=== PATIENT | male | born 1955 | race African-American/Black ===

== ENCOUNTER 2016-12-08 11:19 | Inpatient (IN) ==
[2016-12-08] MEDS ORDERED: Aspirin 81 MG TAB.CHEW PO ONE (11:25)
--- NOTE | 2016-12-08 12:14 | Emergency Department Note ---
Disposition Clinical Impression: Chest pain Disposition: Admitted As Inpatient Condition: Fair Chest Pain HPI - General Chief Complaint: ED Chest Pain Stated Complaint: chest pain Time Seen by Provider: 12/08/16 11:25 Source: patient, EMS Limitations: other Vital Signs Reviewed: Yes Nursing Notes Reviewed: Yes - History of Present Illness HPI Narrative: Mr. Vasquez, a 61yo male with hx chronic neuro deficits from remote CVA, [facility] trop[facility] (0.05). Chest pain onset this morning; awoke him from sleep. Located substernal. Described as a squeezing heaviness with radiation posteriorly to his back. Associated with nausea. Denies dyspnea, diaphoresis. Denies history of CAD. Denies unusual weakness, unusual numbness, unusual tingling. Abdominal pain located epigastric. Described as a constant dullness. He does have a history of GERD on omeprazole he states this pain is a lot different than his typical reflux. Admits: Chest pain, nausea, epigastric abdominal pain. Denies: Fever, chills, dyspnea, diaphoresis, unusual weakness, unusual numbness , unusual tingling. No vomiting, changes in bowel or bladder. Patient's his bedside. She is able to answer many of the questions regarding the history of present illness. Patient fully comprehends and will give answers however this takes much effort of him requires additional patience on the listener. PMH: HTN, HLD, DM insulin dependent, GERD. 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 Severity scale (1-10): 8 - Related Data Home Medications Medication Instructions Recorded Confirmed Albuterol Sulfate [Albuterol 2 puff IH QID PRN 12/08/16 12/08/16 Inhaler] Allopurinol [Zyloprim 300 MG] 300 mg PO DAILY 12/08/16 12/08/16 Aspirin 81 mg PO DAILY 12/08/16 12/08/16 Baclofen 20 mg PO QID 12/08/16 12/08/16 Budesonide/Formoterol 160/4.5 2 puff IH BIDR 12/08/16 12/08/16 [Symbicort 160/4.5] Carbamide Peroxide [Ear Wax Drops] 4 drop BOTH EARS BID 12/08/16 12/08/16 Carbidopa/Levodopa 25/100 [Sinemet 2.5 each PO TID 12/08/16 12/08/16 25/100] Escitalopram [Lexapro] 20 mg PO QAM 12/08/16 12/08/16 Eucerin Creme 1 appl TP DAILY 12/08/16 12/08/16 Gabapentin [Neurontin] 600 mg PO TID 12/08/16 12/08/16 Insulin ASPART [Novolog Flexpen] 0 unit SQ TIDAC 12/08/16 12/08/16 Insulin Glargine [Lantus] 23 unit SQ BID 12/08/16 12/08/16 Lactulose 20 gm PO DAILY 12/08/16 12/08/16 Lamotrigine [Lamictal] 100 mg PO HS 12/08/16 12/08/16 Loratadine [Claritin] 10 mg PO DAILY 12/08/16 12/08/16 Morphine Sulfate 15 mg PO TID PRN 12/08/16 12/08/16 Naproxen [Naprosyn] 500 mg PO BID 12/08/16 12/08/16 Omeprazole [PriLOSEC] 20 mg PO DAILY PRN 12/08/16 12/08/16 Petrolatum,White [Aloe [place]] 1 appl TP BID 12/08/16 12/08/16 Sennosides/Docusate Sodium [Senna 1 each PO BID 12/08/16 12/08/16 Plus] Simvastatin [Zocor] 20 mg PO HS 12/08/16 12/08/16 Allergies Allergy/AdvReac Type Severity Reaction Status Date / Time lisinopril Allergy See Verified 03/15/16 18:45 Comments trazodone Allergy See Verified 03/15/16 18:45 Comments tramadol AdvReac unknown Verified 12/08/16 15:03 All systems ED: reviewed and negative except as stated. (as per HPI) Chest Pain PMH - Past Medical History Medical history: Reports: arthritis, CVA, diabetes, hyperlipidemia, hypertension Psychiatric history: Reports: no psych history - Social History Smoking Status: Current every day smoker Alcohol use: Reports: none Drug use: Reports: none Physical Exam General: Patient is alert, oriented, and in no acute distress. HEENT: No facial asymmetry. Head is normocephalic and atraumatic. PERRLA. Trachea midline. Cardiovascular: Heart regular rate and rhythm without clicks, rubs, gallops, or murmurs. No JVD. PMI nondisplaced. Respiratory: Symmetric chest rise with good respiratory effort. Bilateral breath sounds are clear without wheezing, crackles, or rhonchi. Abdomen: Obese. Bowel sounds present normoactive x-4 quadrants. Abdomen is soft, nondistended, and nontender. No organomegaly noted. Neuro: Cranial nerves II through XII grossly intact. Psych: Patient's affect is appropriate for situation. - General Limitations: other General appearance: alert, in no apparent distress Course Course Narrative: Chest pain workup. Per [place] labs, patient's troponin was 0.052 at 09:36 this morning. Creatinine 1.32, labwork otherwise unremarkable. Vital Signs Temperature 98.1 F 12/08/16 11:21 Pulse Rate 81 12/08/16 11:21 Respiratory Rate 16 12/08/16 11:21 Blood Pressure 151/96 12/08/16 11:21 O2 Sat by Pulse Oximetry 95 12/08/16 11:21 Temperature 98.6 F 12/08/16 16:43 Pulse Rate 88 12/08/16 16:43 Respiratory Rate 16 12/08/16 16:43 Blood Pressure 154/88 12/08/16 16:43 O2 Sat by Pulse Oximetry 97 12/08/16 16:43 Oxygen Delivery Oxygen Delivery Nasal Cannula Chest Pain - Medical Records Medical records reviewed: Yes I reviewed the patient's medical records. - Lab Data Result diagrams: 12/08/16 12:28 12/08/16 12:28 Lab Results 12/08/16 12/08/16 12/08/16 Range/Units 11:46 12:28 12:28 WBC 15.1 H (4.3-11.1) K/mcL RBC 5.73 H (4.19-5.50) M/mcL Hgb 16.7 (12.9-16.9) g/dL Hct 49.4 (37.5-50.1) % MCV 86.2 (83.0-100.0) fL MCH 29.1 (28.0-33.3) pg MCHC 33.8 (31.6-35.5) g/dL RDW 13.1 (11.5-14.5) % Plt Count 191 (140-400) K/mcL MPV 10.6 (9.4-12.4) fL Immature Gran % 0.4 (0-4) % Seg Neutrophils % 83.2 % Lymphocytes % 9.9 % Monocytes % 5.8 % Eosinophils % 0.2 % Basophils % 0.5 % Neutrophils # 12.6 H (1.6-8.9) K/mcL Lymphocytes # 1.5 (0.6-4.6) K/mcL Monocytes # 0.9 (0.0-1.3) K/mcL Eosinophils # 0.0 (0.0-0.6) K/mcL Basophils # 0.1 (0.0-0.2) K/mcL Immature Plt Fraction 5.9 (1.1-6.1) % ESR (0-10) mm/hr PT 11.1 (9.4-12.1) Seconds INR 1.0 APTT 35.9 (26.0-36.0) Seconds Sodium (136-145) mEq/L Potassium (3.5-4.5) mEq/L Chloride (98-109) mEq/L Carbon Dioxide (19-29) mEq/L BUN (8-26) mg/dL Creatinine (0.72-1.25) mg/dL Est GFR ( Amer) (> 60) Est GFR (Non-Af Amer) (> 60) BUN/Creatinine Ratio (6-26) Glucose (70-99) mg/dL Calculated Osmolality (280-300) Calcium (8.6-10.8) mg/dL Creatine Kinase (30-200) Units/L Troponin I 0.01 (0-0.03) ng/mL C-Reactive Protein (Less than 5) mg/L 12/08/16 12/08/16 12/08/16 Range/Units 12:28 12:28 12:28 WBC (4.3-11.1) K/mcL RBC (4.19-5.50) M/mcL Hgb (12.9-16.9) g/dL Hct (37.5-50.1) % MCV (83.0-100.0) fL MCH (28.0-33.3) pg MCHC (31.6-35.5) g/dL RDW (11.5-14.5) % Plt Count (140-400) K/mcL MPV (9.4-12.4) fL Immature Gran % (0-4) % Seg Neutrophils % % Lymphocytes % % Monocytes % % Eosinophils % % Basophils % % Neutrophils # (1.6-8.9) K/mcL Lymphocytes # (0.6-4.6) K/mcL Monocytes # (0.0-1.3) K/mcL Eosinophils # (0.0-0.6) K/mcL Basophils # (0.0-0.2) K/mcL Immature Plt Fraction (1.1-6.1) % ESR 34 H (0-10) mm/hr PT (9.4-12.1) Seconds INR APTT (26.0-36.0) Seconds Sodium 135 L (136-145) mEq/L Potassium 4.4 (3.5-4.5) mEq/L Chloride 100 (98-109) mEq/L Carbon Dioxide 22 (19-29) mEq/L BUN 22 (8-26) mg/dL Creatinine 1.08 (0.72-1.25) mg/dL Est GFR ( Amer) > 60 (> 60) Est GFR (Non-Af Amer) > 60 (> 60) BUN/Creatinine Ratio 20 (6-26) Glucose 184 H (70-99) mg/dL Calculated Osmolality 288 (280-300) Calcium 9.5 (8.6-10.8) mg/dL Creatine Kinase 310 H (30-200) Units/L Troponin I (0-0.03) ng/mL C-Reactive Protein 6 H (Less than 5) mg/L - EKG Data EKG attestation: Yes I reviewed and interpreted this EKG. EKG results narrative: EKG dated 08 December 2016 at 11:28 shows sinus rhythm with a rate of 77. Normal intervals. Left axis. 1/[address] depression in aVF. Nonspecific ST T changes. Compared to previous from the [place] dated 08 December 2016 at 09:19 showing no acute ischemic changes in comparison; specifically the aVF 1/[address] depression is present. Both of these compared to previous dated 03/15/2016 showing sinus rhythm; no acute ischemic changes comparison; specifically the aVF 1/[address] depression is present. Heart Score - Score History: Moderately Suspicious EKG: Non Specific repolarisation Disturbance Age: 45-65 Risk Factors: Equal/Greater than 3 risk factor or history of atherosclerotic disease Troponin: Less than normal limit HEART Score Total: 5 Attestation Statement - Attestation Attestation: I examined this patient and my medical decision-making was reviewed with the CITY CONTROLLER/PA/Advanced Practice Nurse/Resident Physician. I agree with the documented findings, disposition and treatment plan as described except to the extent set forth below. Patient emergency department complaining of chest pain. [facility]. The patient has difficulty with speech from her prior stroke. Patient moves his hand along his lower chest when asked where it hurts. He also pointed to his back. On exam he is in no distress with clear lungs. Plan. Cardiac workup. He is describing pain into his back. His workup has been unremarkable and his EKG is unchanged. We will check a CTA chest abdomen pelvis to rule out dissection.
[2016-12-08 12:37] LABS: Basophils # 0.1 K/mcL (0.0-0.2); Basophils % 0.5 %; Eosinophils % 0.2 %; Hematocrit 49.4 % (37.5-50.1); Hemoglobin 16.7 g/dL (12.9-16.9); Immature Granulocytes % 0.4 % (0-4); Immature Platelets 5.9 % (1.1-6.1); Lymphocytes # 1.5 K/mcL (0.6-4.6); Lymphocytes % 9.9 %; Mean Corpuscular HGB Conc 33.8 g/dL (31.6-35.5); Mean Corpuscular Hemoglobin 29.1 pg (28.0-33.3); Mean Corpuscular Volume 86.2 fL (83.0-100.0); Mean Platelet Volume 10.6 fL (9.4-12.4); Monocytes # 0.9 K/mcL (0.0-1.3); Monocytes % 5.8 %; Neutrophils # 12.6 K/mcL (1.6-8.9); Platelet Count 191 K/mcL (140-400); Red Blood Count 5.73 M/mcL (4.19-5.50); Red Cell Distribution Width 13.1 % (11.5-14.5); Segmented Neutrophils % 83.2 %
[2016-12-08 12:43] LABS: Prothrombin Time 11.1 Seconds (9.4-12.1)
[2016-12-08 12:45] LABS: Activated Partial Thrombo Time 35.9 Seconds (26.0-36.0)
[2016-12-08 12:48] LABS: BUN/Creatinine Ratio 20 (6-26); Blood Urea Nitrogen 22 mg/dL (8-26); Calcium 9.5 mg/dL (8.6-10.8); Carbon Dioxide 22 mEq/L (19-29); Chloride 100 mEq/L (98-109); Glucose 184 mg/dL (70-99); Osmolality,Calculated 288 (280-300); Potassium 4.4 mEq/L (3.5-4.5); Sodium 135 mEq/L (136-145); eGFR For African Americans > 60 (> 60); eGFR For Non-African Americans > 60 (> 60)
[2016-12-08] MEDS ORDERED: *HR* Morphine 2 MG/ML SYRINGE IV ONE (13:24)
[2016-12-08] MEDS: Nitroglycerin 25 MG/250 ML INFUS..BTL IVC SCH (14:39)
[2016-12-08] MEDS ORDERED: Ketorolac 30 MG/ML VIAL IVP PRN (15:37)
[2016-12-08] MEDS ORDERED: Ketorolac 30 MG/ML VIAL IVP ONE (15:38)
[2016-12-08] MEDS ORDERED: *HR* HYDROmorphone 2 MG/ML SYRINGE IVP PRN (15:40)
[2016-12-08] MEDS ORDERED: D5% in Water 1,000 ML IV PRN (15:41)
[2016-12-08] MEDS ORDERED: Dextrose Gel 15 GM PO PRN ×2 (15:41)
[2016-12-08] MEDS ORDERED: *HR* Dextrose 50 % in Water (Syg) 50 ML SYRINGE IVP PRN (15:41)
[2016-12-08] MEDS ORDERED: Ondansetron 4 MG/2 ML VIAL IVP PRN (15:45)
--- NOTE | 2016-12-08 15:49 | Internal Med History&Physical ---
Date of Encounter: 12/08/16 Time of Encounter: 14:45 Internal Medicine - H&P: HPI Chief complaint: Chest pain Admitted From: Emergency Dept Plans for Post Hospital Care: Home History of present illness: Mr. Vasquez is a 61 year old male Mr. Vasquez, with medical history significant for GERD, DM-2 on insulin, CVA with residual deficits and expressive dysphasia ( with prior cardiac history) was referred from the [facility] where he had present after awakening to severe chest pain at 4;00am this morning. He was brought in by his girl-friend who help with history. He is a very poor historian due to severe expressive dysphasia. Chest pain is mid-sternal and right-sided, severe, persistent, not relieved thus far any factor. He reports some nausea but no vomiting, no diaphoresis, or SOB. The chest pain appears to have a pleuritic component, as he appears to say the pain is worse with deep breathing and movement of the torso. No rash. No history of shingles. No chest trauma, no cough or fever. No history of pericarditis. [facility], trop[facility] reported elevated at 0.05, WITHOUT ACUTE ekg CHANGES. tROPONIN IS HOWEVER 0.01 at [facility]. There are no acute changes on EKG at [facility]. A 10-point ROS was performed. He is DNR-CCA as per discussion. He nominates is daughter, James Arnold as his NOK/ POA ([phone]). Medical history: Reports: arthritis, CVA, diabetes, hyperlipidemia, hypertension , PLS, GERD, Psychiatric history: Reports: no psych history Smoking Status: Current every day smoker, <1 PPD Alcohol use: Reports: none Drug use: Reports: none Family history: he is a very poor historian due to severe expressive dysphasia ROS: A 10-point ROS was performed, positives and relevant negatives are detailed, system-symptom not mentioned is assumed negative unless otherwise stated. Vital Signs Temperature 98.1 F 12/08/16 11:21 Pulse Rate 81 12/08/16 11:21 Respiratory Rate 16 12/08/16 11:21 Blood Pressure 151/96 12/08/16 11:21 O2 Sat by Pulse Oximetry 95 12/08/16 11:21 Temperature 98.1 F 12/08/16 11:21 Pulse Rate 82 12/08/16 11:29 Respiratory Rate 16 12/08/16 11:29 Blood Pressure 163/89 12/08/16 11:29 O2 Sat by Pulse Oximetry 96 12/08/16 11:29 O/E Acutely distressed patient, from pain, marked expressive dysphasia HEENT: not pale, anicteric, afebrile, acyanotic., trachea is central, no JVD, no cervical or jugular lymphadenopathy. Chest: CTAB, chest wall is tender in the mid-sternum, lower right chest wall anteriorly and the epigastrium. Heart: RRR, HS1/2, no murmur Abdomen: soft, vague epigastric tenderness, not distended. BS+, normoactive MILITARY PAY CLERK: AAO X 3. Marked expressive dysphasia Skin: No active skin lesion Extremities: No pedal edema, normal pedal pulses, no calf tenderness. Lab Results 12/08/16 12/08/16 12/08/16 Range/Units 11:46 12:28 12:28 WBC 15.1 H (4.3-11.1) K/mcL RBC 5.73 H (4.19-5.50) M/mcL Hgb 16.7 (12.9-16.9) g/dL Hct 49.4 (37.5-50.1) % MCV 86.2 (83.0-100.0) fL MCH 29.1 (28.0-33.3) pg MCHC 33.8 (31.6-35.5) g/dL RDW 13.1 (11.5-14.5) % Plt Count 191 (140-400) K/mcL MPV 10.6 (9.4-12.4) fL Immature Gran % 0.4 (0-4) % Seg Neutrophils % 83.2 % Lymphocytes % 9.9 % Monocytes % 5.8 % Eosinophils % 0.2 % Basophils % 0.5 % Neutrophils # 12.6 H (1.6-8.9) K/mcL Lymphocytes # 1.5 (0.6-4.6) K/mcL Monocytes # 0.9 (0.0-1.3) K/mcL Eosinophils # 0.0 (0.0-0.6) K/mcL Basophils # 0.1 (0.0-0.2) K/mcL Immature Plt Fraction 5.9 (1.1-6.1) % PT 11.1 (9.4-12.1) Seconds INR 1.0 APTT 35.9 (26.0-36.0) Seconds Sodium (136-145) mEq/L Potassium (3.5-4.5) mEq/L Chloride (98-109) mEq/L Carbon Dioxide (19-29) mEq/L BUN (8-26) mg/dL Creatinine (0.72-1.25) mg/dL Est GFR ( Amer) (> 60) Est GFR (Non-Af Amer) (> 60) BUN/Creatinine Ratio (6-26) Glucose (70-99) mg/dL Calculated Osmolality (280-300) Calcium (8.6-10.8) mg/dL Troponin I 0.01 (0-0.03) ng/mL 12/08/16 Range/Units 12:28 WBC (4.3-11.1) K/mcL RBC (4.19-5.50) M/mcL Hgb (12.9-16.9) g/dL Hct (37.5-50.1) % MCV (83.0-100.0) fL MCH (28.0-33.3) pg MCHC (31.6-35.5) g/dL RDW (11.5-14.5) % Plt Count (140-400) K/mcL MPV (9.4-12.4) fL Immature Gran % (0-4) % Seg Neutrophils % % Lymphocytes % % Monocytes % % Eosinophils % % Basophils % % Neutrophils # (1.6-8.9) K/mcL Lymphocytes # (0.6-4.6) K/mcL Monocytes # (0.0-1.3) K/mcL Eosinophils # (0.0-0.6) K/mcL Basophils # (0.0-0.2) K/mcL Immature Plt Fraction (1.1-6.1) % PT (9.4-12.1) Seconds INR APTT (26.0-36.0) Seconds Sodium 135 L (136-145) mEq/L Potassium 4.4 (3.5-4.5) mEq/L Chloride 100 (98-109) mEq/L Carbon Dioxide 22 (19-29) mEq/L BUN 22 (8-26) mg/dL Creatinine 1.08 (0.72-1.25) mg/dL Est GFR ( Amer) > 60 (> 60) Est GFR (Non-Af Amer) > 60 (> 60) BUN/Creatinine Ratio 20 (6-26) Glucose 184 H (70-99) mg/dL Calculated Osmolality 288 (280-300) Calcium 9.5 (8.6-10.8) mg/dL Troponin I (0-0.03) ng/mL CXR: no acute cardiopulmonary anomalies CTA chest and CT abdomen: no acute cardiopulmonary anomalies, no pulmonary embolism, no dissection. EKG: NSR @77, normal axis, normal intervals, marginal ST in aVF (0.5mm). otherwise non-specific ST-T segment anomalies IMP Atypical chest pain, more consistent with musculoskeletal pain, than cardiac chest pain despite presence of risk factor, pain is partly reproducible Leucocytosis: Likely reactive or inflammatory Chronic morbidities DM2 HTN HLD PLS Remote CVA with residual expressive dysphasia Arthritis GERD. Ambulatory dysfunction, uses a walker the past 4 years. Tobacco abuse PLAN Admit to telemetry Cycle troponin, serial EKG 2D ECHO to assess LVEF, wma and to look for pericardial effusion that may suggest pericarditis CPK, CRP, ESR, trend WBC IV Toradol and Dialudid for pain Stress test in the AM if troponin remain normal Basal and correctional insulin QAC/HS Continue essential medications of chronic morbidities GI/DVT prophylaxis. Nicotine replacement offered. Past Med Surg Social Fam HX - Past Medical History Medical history: arthritis, CVA, diabetes, hyperlipidemia, hypertension Psychiatric history: no psych history - Social History Smoking Status: Current every day smoker Smokeless Tobacco Status: No Alcohol use: none Drug use: none Internal Medicine - H&P: Meds Albuterol Sulfate [Albuterol Inhaler] 2 puff IH QID PRN 12/08/16 [History] Allopurinol [Zyloprim 300 MG] 300 mg PO DAILY 12/08/16 [History] Aspirin 81 mg PO DAILY 12/08/16 [History] Baclofen 20 mg PO QID 12/08/16 [History] Budesonide/Formoterol 160/4.5 [Symbicort 160/4.5] 2 puff IH BIDR 12/08/16 [ History] Carbamide Peroxide [Ear Wax Drops] 4 drop BOTH EARS BID 12/08/16 [History] Carbidopa/Levodopa 25/100 [Sinemet 25/100] 2.5 each PO TID 12/08/16 [History] Escitalopram [Lexapro] 20 mg PO QAM 12/08/16 [History] Eucerin Creme 1 appl TP DAILY 12/08/16 [History] Gabapentin [Neurontin] 600 mg PO TID 12/08/16 [History] Insulin ASPART [Novolog Flexpen] 0 unit SQ TIDAC 12/08/16 [History] Insulin Glargine [Lantus] 23 unit SQ BID 12/08/16 [History] Lactulose 20 gm PO DAILY 12/08/16 [History] Lamotrigine [Lamictal] 100 mg PO HS 12/08/16 [History] Loratadine [Claritin] 10 mg PO DAILY 12/08/16 [History] Morphine Sulfate 15 mg PO TID PRN 12/08/16 [History] Naproxen [Naprosyn] 500 mg PO BID 12/08/16 [History] Omeprazole [PriLOSEC] 20 mg PO DAILY PRN 12/08/16 [History] Petrolatum,White [Aloe [place]] 1 appl TP BID 12/08/16 [History] Sennosides/Docusate Sodium [Senna Plus] 1 each PO BID 12/08/16 [History] Simvastatin [Zocor] 20 mg PO HS 12/08/16 [History] Allergies lisinopril Allergy (Verified 03/15/16 18:45) See Comments trazodone Allergy (Verified 03/15/16 18:45) See Comments tramadol Adverse Reaction (Verified 12/08/16 15:03) unknown [facility] All Systems PM: A 10-system review of systems was performed and is negative for pertinent findings except as documented above in the HPI. - Constitutional Vitals: Temp Pulse Resp BP Pulse Ox 98.1 F 86 18 162/92 100 12/08/16 11:21 12/08/16 14:40 12/08/16 15:22 12/08/16 15:22 12/08/16 14:40 Internal Med - H&P Results - Labs CBC & Chem 7: 12/08/16 12:28 12/08/16 12:28
[2016-12-08 16:28] LABS: C-Reactive Protein 6 mg/L (Less than 5); Creatine Kinase 310 Units/L (30-200)
[2016-12-08] MEDS: Insulin LISPRO 300 UNITS/3 ML VIAL SQ SCH (17:28)
[2016-12-08] MEDS: Baclofen 10 MG TABLET PO SCH ×2 (17:39→22:26)
[2016-12-08] MEDS: Budesonide/Formoterol 160/4.5 MDI IH SCH ×2 (21:22→21:23)
[2016-12-08] MEDS ORDERED: Perflutren Lipid Microsphere 1.3 ML in 0.9 % Sodium Chloride 8.7 ML IVP ONE (21:34)
[2016-12-08] MEDS: Gabapentin 300 MG CAPSULE PO SCH (22:27)
[2016-12-08] MEDS: lamoTRIgine 100 MG TABLET PO SCH (22:27)
[2016-12-08] MEDS: Sennosides/Docusate Sodium TABLET PO SCH (22:27)
[2016-12-08] MEDS: Carbidopa/Levodopa 25/100 TABLET PO SCH (22:27)
[2016-12-08] MEDS: Lactulose Oral Soln 20 GM/30 ML UDC PO SCH (22:28)
[2016-12-09] MEDS: Insulin DETEMIR 100 UNIT/ML X5UNITS SQ SCH ×3 (00:03→21:35)
[2016-12-09] MEDS: Insulin LISPRO 300 UNITS/3 ML VIAL SQ SCH ×5 (00:04→21:15)
[2016-12-09 04:30] LABS: Basophils # 0.1 K/mcL (0.0-0.2); Basophils % 0.6 %; Eosinophils # 0.1 K/mcL (0.0-0.6); Eosinophils % 0.9 %; Hematocrit 48.9 % (37.5-50.1); Hemoglobin 15.7 g/dL (12.9-16.9); Immature Granulocytes % 0.3 % (0-4); Lymphocytes # 3.1 K/mcL (0.6-4.6); Lymphocytes % 24.9 %; Mean Corpuscular HGB Conc 32.1 g/dL (31.6-35.5); Mean Corpuscular Hemoglobin 28.4 pg (28.0-33.3); Mean Corpuscular Volume 88.6 fL (83.0-100.0); Mean Platelet Volume 10.8 fL (9.4-12.4); Monocytes # 1.2 K/mcL (0.0-1.3); Monocytes % 9.4 %; Neutrophils # 7.9 K/mcL (1.6-8.9); Platelet Count 193 K/mcL (140-400); Red Blood Count 5.52 M/mcL (4.19-5.50); Red Cell Distribution Width 13.3 % (11.5-14.5); Segmented Neutrophils % 63.9 %
[2016-12-09] MEDS ORDERED: Regadenoson 0.4 MG/5 ML SYRINGE IVP ONE (06:13)
[2016-12-09] MEDS: *HR* Enoxaparin 40 MG/0.4 ML SYRINGE SQ SCH (06:53)
[2016-12-09] MEDS: Baclofen 10 MG TABLET PO SCH ×4 (09:53→20:45)
[2016-12-09] MEDS: Aspirin 81 MG TAB.CHEW PO SCH (09:54)
[2016-12-09] MEDS: Carbidopa/Levodopa 25/100 TABLET PO SCH ×3 (09:54→20:52)
[2016-12-09] MEDS: Gabapentin 300 MG CAPSULE PO SCH ×3 (09:55→20:45)
--- NOTE | 2016-12-09 09:56 | ECHO - Doppler Report ---
Echo with Imaging Enhancement Agent Name: Demario Vasquez Date of Study: 12/08/2016 Date: 1955 Ht: 71.0 in Medical Record#: [id number] Age: 61 Wt: 228.0 lb Gender: Male BSA: 2.23 Order #: [id number] Location: [facility] Room #: 2A37 Reading Physician: Breonna Preciado DO Used Equipment Sales Representative: DORYS BurrisT Ordering Physician: Xiang Mondragon MD Primary Physician: [facility] Indications: Chest pain Impressions: LVEF 60%. Normal left ventricular size and systolic function. There is evidence of mild diastolic dysfunction of the left ventricle. Normal right ventricular size and function. No significant valvular dysfunction. No pulmonary hypertension. Left Ventricular Wall Motion: Rest Echo Findings The mid anterior septal and basal anterior septal sigala were not visualized. All other wall segments showed normal motion. Findings: Study Quality * Technically sub-optimal due to clinical status. ECG Findings * Normal sinus rhythm. Aortic Valve * No aortic regurgitation. * Aortic valve not well visualized. * No aortic stenosis. Mitral Valve * No mitral regurgitation. * Mitral valve not well visualized. * No mitral stenosis. Tricuspid Valve * Tricuspid valve not well visualized. * No tricuspid regurgitation. Pulmonic Valve * Pulmonic valve is not well visualized. * No pulmonic stenosis. * No pulmonic regurgitation. Pulmonary Artery * Pulmonary artery not well visualized. Right Ventricle * Normal right ventricular structure and function. Left Ventricle * Normal LV chamber size, wall thickness and function. * Mild left ventricular diastolic dysfunction. * Definity echo contrast was used. * LVEF 60%. Left Atrium * Normal left atrial size. Right Atrium * Normal right atrial size. Interatrial Septum * Interatrial septum not well evaluated. IVC * The IVC is not well evaluated. Pericardium * There is no pericardial effusion present. Aorta * Normally sized aortic root. History Hypertension Diabetes Hypercholesteremia 04-21-2015 a Previous Echo was performed. Contrast: Definity 1.3 ml in 8.7 ml of saline 2 ml. Measurements: BP: 154/ 88 2D Normal Values RVIDd: 3.30 cm <2.7 cm IVSd: .90 cm 0.6 - 1.0 cm LVIDd: 4.60 cm 3.7 - 5.6 cm LVPWd: .90 cm 0.6 - 1.1 cm AO: 3.10 cm < 4.0 cm LA: 3.30 cm 2.0 - 4.0cm %FS: 12.70 cm >25 % LA volume: 34 Mitral Valve Peak E:.43 m/sec Peak A:.64 m/sec E/A Ratio:0.7 Tricuspid Valve TV Regurg Peak Grad: 5.00mmHg TV Regurg Peak [place]: 1.14m/sec Updated by Breonna Preciado on 12/09/2016 9:49:24 AM electronically signed on 12/09/2016 9:52:28 AM with status of Final Wall Motion [place]: 1=Normal, 2=Hypokinesis, 3=Akinesis, 4=Dyskinesis, 5=Aneurysmal, 6=Hyperkinetic, X=Not Visualized (Blank)=Missing
[2016-12-09] MEDS: Loratadine 10 MG TABLET PO SCH (09:57)
[2016-12-09] MEDS: Sennosides/Docusate Sodium TABLET PO SCH ×2 (09:57→20:48)
[2016-12-09] MEDS: Eucerin Cream 57 GM TUBE TP SCH (09:59)
[2016-12-09] MEDS: Nitroglycerin 25 MG/250 ML INFUS..BTL IVC SCH (10:00)
[2016-12-09] MEDS: Budesonide/Formoterol 160/4.5 MDI IH SCH ×2 (10:36→20:12)
[2016-12-09] MEDS: *HR* Morphine Sulfate SR (12 HR) 15 MG TABLET.ER PO SCH ×2 (12:04→20:48)
--- NOTE | 2016-12-09 12:08 | Nuclear Medicine Stress Report ---
Regadenoson Nuclear Stress Name: Demario Vasquez Date of Study: 12/09/2016 Date: 1955 Ht: 70.0 in Medical Record#: [id number] Age: 61 Wt: 237.0 lb Gender: Male Order #: [id number] Location: [facility] Room: [facility] Supervising Provider: Maxwell Delgado CNP Reading Physician: Breonna Preciado DO Ordering Physician: Carlos Lowery MD Primary Care Physician: [facility] Stress Technologist: Chip Jasso, PHOTOGRAPHER STILL, CPFT Housekeeping/Laundry Supervisor: Nafisa Pineda Indications: Chest Pain Impression: Perfusion imaging was negative for ischemia or infarct. Pharmacologic ECG was negative for ischemia at the level of heart rate achieved. Gated EF = 54%. History: Hypertension Diabetes Hypercholesteremia History of Smoking Stress Test Summary: Stress Test Type: Pharmacologic Regadenoson 0.4mg/5ml given IV Baseline Information: Initial Heart Rate: 81 Blood Pressure: 178/84 Stress Information: Stress Time: 4 min 00 sec Test Terminated Due to (primary): As per protocol Maximum Blood Pressure: 140/68 Maximum Heart Rate: 93 Percent Maximum Heart Rate Achieved: 62 Double Product: 29136 METS Reached: 1 Symptoms: Shortness of breath Nuclear Summary: SPECT myocardial perfusion imaging using Tc99m Sestamibi given intravenously was performed at rest and following cardiac stress testing. The resting images were obtained following initial dose of 10.3 mCi. Following stress an additional dose of 33.5 mCi was given at peak exercise or 30 seconds post regadenoson infusion. Medication Given: Time Medication Dose Units Route Findings: Stress Note * Resting ECG demonstrated normal sinus rhythm with nonspecific ST abnormalities. * Pharmacologic stress ECG is negative for ischemia at level of heart rate achieved. * No arrhythmias were noted during stress. * Patient had no chest pain during stress. Hemodynamic responses * Normal hemodynamic responses to pharmacologic stress. Study Quality * Study quality was fair. Gated EF % * Gated EF = 54%. Left Ventricle * The left ventricle is not dilated. TID * No evidence of transient ischemic dilatation. Lung Uptake * There is no evidence of increase lung uptake. NORMALS * Normal wall motion. PERFUSION * Homogeneous rest and stress perfusion without evidence for infarct or ischemia. Updated by Breonna Preciado on 12/09/2016 12:01:52 PM electronically signed on 12/09/2016 12:03:10 PM with status of Final
--- NOTE | 2016-12-09 15:26 | Electrocardiograph Report ---
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
--- NOTE | 2016-12-09 17:46 | Internal Med Progress Note ---
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 However he is quite independent at home and he does most of his things by himself. We will continue his home medications, will recommend follow-up with his own neurologist for further management. No worsening weakness or new neurological deficits at this time. (2) Fever Current Visit: Yes Status: Acute Assessment and plan: Noted one episode of temperature of 100.1 in the morning. He has had abdominal and chest CT, which did not show any focus of infection. We will monitor for any further temperature spikes, no further intervention at this time. Qualifiers: Fever type: unspecified Qualified Code(s): R50.9 - Fever, unspecified (3) Chest pain Current Visit: Yes Status: Acute Assessment and plan: Denies any chest pain today. He underwent stress testing which shows negative for ischemia or infarction. No further need for any cardiac intervention at this time. it may have been muscoluskeletal chest pain based on history. Qualifiers: Chest pain type: unspecified Qualified Code(s): R07.9 - Chest pain, unspecified - Subjective Interval history: seen at the bedside, denies any pain at this time, the says that he has a not moved his bowels for a few days now. 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 he is able to understand however cannot talk and slowly moves his extremities. at home, as per the he is quite independent. - Constitutional Vitals: Temp Pulse Resp BP Pulse Ox 99.6 F 96 16 123/78 99 12/09/16 14:43 12/09/16 14:43 12/09/16 14:43 12/09/16 14:43 12/09/16 14:43 General appearance: Present: A&O X 2, pleasant, no acute distress Exam: O/E Acutely distressed patient, from pain, marked expressive dysphasia HEENT: not pale, anicteric, afebrile, acyanotic., trachea is central, no JVD, no cervical or jugular lymphadenopathy. Chest: CTAB, Heart: RRR, HS1/2, no murmur Abdomen: soft, no tenderness, not distended. 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 Marked expressive dysphasia Skin: No active skin lesion Extremities: No pedal edema, normal pedal pulses, no calf tenderness. Internal Medicine: Result - Labs CBC & Chem 7: 12/09/16 03:50 12/09/16 03:50 Labs: Short CBC 12/09/16 Range/Units 03:50 WBC 12.4 H (4.3-11.1) K/mcL Hgb 15.7 (12.9-16.9) g/dL Hct 48.9 (37.5-50.1) % Plt Count 193 (140-400) K/mcL Neutrophils # 7.9 (1.6-8.9) K/mcL BMP 12/09/16 03:50 Creatinine 1.49 H Cardiac Enzymes 12/08/16 12/09/16 Range/Units 21:07 03:50 Troponin I 0.01 0.01 (0-0.03) ng/mL - ABG Interpretation ABG results: PT/INR, D-dimer PT 11.1 Seconds (9.4-12.1) 12/08/16 12:28 Consult Discharge Plan - Plan [facility]errals: [facility] [Primary Care Provider] -
[2016-12-09] MEDS: Lactulose Oral Soln 20 GM/30 ML UDC PO SCH (20:45)
[2016-12-09] MEDS: lamoTRIgine 100 MG TABLET PO SCH (20:45)
[2016-12-10] MEDS ORDERED: Ipratropium/Albuterol Neb 3 ML IH PRN (00:47)
[2016-12-10 05:31] LABS: Eosinophils % 0.3 %; Hematocrit 46.6 % (37.5-50.1); Hemoglobin 15.4 g/dL (12.9-16.9); Immature Granulocytes % 0.6 % (0-4); Lymphocytes % 11.4 %; Mean Corpuscular Volume 87.8 fL (83.0-100.0); Mean Platelet Volume 10.8 fL (9.4-12.4); Monocytes % 9.6 %; Platelet Count 182 K/mcL (140-400); Red Blood Count 5.31 M/mcL (4.19-5.50); Red Cell Distribution Width 13.3 % (11.5-14.5); Segmented Neutrophils % 77.9 %
[2016-12-10 05:32] LABS: Basophils % 0.2 %; Lymphocytes # 1.6 K/mcL (0.6-4.6); Monocytes # 1.3 K/mcL (0.0-1.3); Neutrophils # 10.8 K/mcL (1.6-8.9)
[2016-12-10 05:48] LABS: Calcium 9.9 mg/dL (8.6-10.8); Potassium 4.5 mEq/L (3.5-4.5)
[2016-12-10] MEDS: *HR* Enoxaparin 40 MG/0.4 ML SYRINGE SQ SCH (06:07)
[2016-12-10] MEDS: *HR* Morphine Sulfate SR (12 HR) 15 MG TABLET.ER PO SCH ×2 (06:07→17:11)
[2016-12-10] MEDS: Budesonide/Formoterol 160/4.5 MDI IH SCH ×2 (07:29→19:43)
[2016-12-10] MEDS: Carbidopa/Levodopa 25/100 TABLET PO SCH ×2 (08:04→14:39)
[2016-12-10] MEDS: Loratadine 10 MG TABLET PO SCH (08:05)
[2016-12-10] MEDS: Gabapentin 300 MG CAPSULE PO SCH ×2 (08:05→14:39)
[2016-12-10] MEDS: Baclofen 10 MG TABLET PO SCH ×3 (08:05→17:11)
[2016-12-10] MEDS: Insulin LISPRO 300 UNITS/3 ML VIAL SQ SCH ×3 (08:06→17:11)
[2016-12-10] MEDS: Eucerin Cream 57 GM TUBE TP SCH (08:06)
[2016-12-10] MEDS: Sennosides/Docusate Sodium TABLET PO SCH (08:06)
[2016-12-10] MEDS: Aspirin 81 MG TAB.CHEW PO SCH (08:06)
[2016-12-10] MEDS: Insulin DETEMIR 100 UNIT/ML X5UNITS SQ SCH (08:07)
[2016-12-10] MEDS: Nitroglycerin 25 MG/250 ML INFUS..BTL IVC SCH (12:05)
--- NOTE | 2016-12-10 15:09 | Internal Med Progress Note ---
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 he says that baclofen helped and was being worked for baclofen pump which did not happen from ?no insurance coverage However he is quite independent at home and he does most of his things by himself. We will continue his home medications, spoke to from neurology here and will see him as OP for followup as he will not be able to follow up at [facility] given change in insurance. he reports some weakness today that is aggravated today, consulted PT/OT today, recommended ECF, plan to send to ECF. (2) Fever Current Visit: Yes Status: Acute Assessment and plan: Noted one episode of temperature of 100.1 yesterday, no more temp rise. He has had abdominal and chest CT, which did not show any focus of infection. We will monitor for any further temperature spikes, no further intervention at this time. Qualifiers: Fever type: unspecified Qualified Code(s): R50.9 - Fever, unspecified (3) Chest pain Current Visit: Yes Status: Acute Assessment and plan: Denies any chest pain today. He underwent stress testing which shows negative for ischemia or infarction. No further need for any cardiac intervention at this time. it may have been muscoluskeletal chest pain based on history. Qualifiers: Chest pain type: unspecified Qualified Code(s): R07.9 - Chest pain, unspecified (4) EVE (acute kidney injury) Current Visit: Yes Status: Acute Assessment and plan: will add IVF today, has mild worsening of the EVE. will repeat chem tomm. avoid nephrotoxic drugs. - Time Spent With Patient 25 - 35 minutes - Subjective Interval history: seen at the bedside, seems very frustated about his symptoms and the fact that there is no definitive treatment. he has b/l lower limb weakness and expressive dysphasia, he follows with his neurologist at [facility] and has been diagnosed with primary lateral sclerosis . he is able to understand however cannot talk properly and slowly moves his extremities. at home, as per the he is quite independent. he says he has some swallowing difficulty which is chronic. denies any chest pain or sob. - Constitutional Vitals: Temp Pulse Resp BP Pulse Ox 97.6 F 85 16 137/80 97 12/10/16 10:56 12/10/16 12:56 12/10/16 12:56 12/10/16 12:56 12/10/16 12:56 General appearance: Present: A&O X 2, pleasant, no acute distress Exam: O/E Acutely distressed patient, from pain, marked expressive dysphasia HEENT: not pale, anicteric, afebrile, acyanotic., trachea is central, no JVD, no cervical or jugular lymphadenopathy. Chest: CTAB, Heart: RRR, HS1/2, no murmur Abdomen: soft, vague epigastric tenderness, not distended. BS+, normoactive MATERIAL WORKER: AAO X 3. Marked expressive dysphasia Skin: No active skin lesion Extremities: No pedal edema, normal pedal pulses, no calf tenderness. Internal Medicine: Result - Labs CBC & Chem 7: 12/10/16 04:50 12/10/16 04:50 Labs: Short CBC 12/10/16 Range/Units 04:50 WBC 13.9 H (4.3-11.1) K/mcL Hgb 15.4 (12.9-16.9) g/dL Hct 46.6 (37.5-50.1) % Plt Count 182 (140-400) K/mcL Neutrophils # 10.8 H (1.6-8.9) K/mcL BMP 12/10/16 04:50 Sodium 132 L Potassium 4.5 Chloride 95 L Carbon Dioxide 23 BUN 32 H D Creatinine 1.68 H Glucose 154 H Calcium 9.9 - ABG Interpretation ABG results: PT/INR, D-dimer PT 11.1 Seconds (9.4-12.1) 12/08/16 12:28 Consult Discharge Plan - Plan [facility]errals: [facility] [Primary Care Provider] -
[2016-12-10] MEDS: 0.9 % Sodium Chloride 1,000 ML IVC SCH (16:18)
[2016-12-11] MEDS: Insulin LISPRO 300 UNITS/3 ML VIAL SQ SCH ×5 (00:30→22:05)
[2016-12-11] MEDS: Lactulose Oral Soln 20 GM/30 ML UDC PO SCH ×2 (00:37→22:05)
[2016-12-11] MEDS: Gabapentin 300 MG CAPSULE PO SCH ×4 (00:41→22:04)
[2016-12-11] MEDS: Carbidopa/Levodopa 25/100 TABLET PO SCH ×4 (00:41→22:05)
[2016-12-11] MEDS: Baclofen 10 MG TABLET PO SCH ×5 (00:41→22:05)
[2016-12-11] MEDS: Insulin DETEMIR 100 UNIT/ML X5UNITS SQ SCH ×3 (00:41→22:05)
[2016-12-11] MEDS: lamoTRIgine 100 MG TABLET PO SCH ×2 (00:42→22:04)
[2016-12-11] MEDS: Sennosides/Docusate Sodium TABLET PO SCH ×3 (00:42→22:05)
[2016-12-11] MEDS: *HR* Enoxaparin 40 MG/0.4 ML SYRINGE SQ SCH (05:54)
[2016-12-11] MEDS: *HR* Morphine Sulfate SR (12 HR) 15 MG TABLET.ER PO SCH ×2 (05:55→17:49)
[2016-12-11] MEDS: 0.9 % Sodium Chloride 1,000 ML IVC SCH (05:56)
[2016-12-11 06:27] LABS: Basophils % 0.2 %; Eosinophils # 0.2 K/mcL (0.0-0.6); Eosinophils % 1.2 %; Hematocrit 43.8 % (37.5-50.1); Hemoglobin 14.4 g/dL (12.9-16.9); Immature Granulocytes % 0.6 % (0-4); Lymphocytes # 1.7 K/mcL (0.6-4.6); Lymphocytes % 12.9 %; Mean Corpuscular HGB Conc 32.9 g/dL (31.6-35.5); Mean Corpuscular Hemoglobin 28.7 pg (28.0-33.3); Mean Corpuscular Volume 87.4 fL (83.0-100.0); Mean Platelet Volume 10.7 fL (9.4-12.4); Monocytes # 1.5 K/mcL (0.0-1.3); Monocytes % 11.2 %; Neutrophils # 9.6 K/mcL (1.6-8.9); Platelet Count 181 K/mcL (140-400); Red Blood Count 5.01 M/mcL (4.19-5.50); Segmented Neutrophils % 73.9 %
[2016-12-11 06:41] LABS: Calcium 9.6 mg/dL (8.6-10.8); Potassium 4.7 mEq/L (3.5-4.5)
[2016-12-11] MEDS: Budesonide/Formoterol 160/4.5 MDI IH SCH ×2 (07:47→20:33)
[2016-12-11] MEDS: Aspirin 81 MG TAB.CHEW PO SCH (08:40)
[2016-12-11] MEDS: Loratadine 10 MG TABLET PO SCH (08:41)
[2016-12-11] MEDS: Eucerin Cream 57 GM TUBE TP SCH (08:41)
[2016-12-11 10:16] LABS: Bilirubin,Urine Small (Negative); Blood,Urine Negative (Negative); Clarity,Urine Cloudy (Clear); Color,Urine Dark Yellow (Yellow); Glucose,Urine (UA) Normal (Normal); Ketones,Urine Trace mg/dL (Negative); Leukocyte Esterase,Urine Negative (Negative); Nitrite,Urine Negative (Negative); Protein,Urine >=300 mg/dL (Neg-Trace)
[2016-12-11 10:18] LABS: Bacteria,Urine None Seen per hpf (None-Few); Hyaline Casts,Urine Few per lpf (None-Few); RBC,Urine 0-3 per hpf (0-3); Squamous Epithelial Cell,Urine Many per lpf (None-Few)
[2016-12-11 10:33] LABS: Sperm,Urine Present
[2016-12-11] MEDS ORDERED: amLODIPine 5 MG TABLET PO STA (17:17)
[2016-12-11] MEDS ORDERED: Milk and Molasses Enema 200 ML RC ONE (17:20)
--- NOTE | 2016-12-11 18:12 | Internal Med Progress Note ---
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 he says that baclofen helped and was being worked for baclofen pump which did not happen from ?no insurance coverage However he is quite independent at home and he does most of his things by himself. We will continue his home medications, spoke to from neurology here and will see him as OP for followup as he will not be able to follow up at [facility] given change in insurance, however the girfriend refused. PT OT recommended ECF, plan to send to [place] rehab, awaiting social work (2) Fever Current Visit: Yes Status: Acute Assessment and plan: Noted one episode of temperature of 101 yesterday, no more temp rise. He has had abdominal and chest CT, which did not show any focus of infection. ua is negative We will monitor for any further temperature spikes, no further intervention at this time. Qualifiers: Fever type: unspecified Qualified Code(s): R50.9 - Fever, unspecified (3) Chest pain Current Visit: Yes Status: Acute Assessment and plan: Denies any chest pain today. He underwent stress testing which shows negative for ischemia or infarction. No further need for any cardiac intervention at this time. it may have been muscoluskeletal chest pain based on history. Qualifiers: Chest pain type: unspecified Qualified Code(s): R07.9 - Chest pain, unspecified (4) EVE (acute kidney injury) Current Visit: Yes Status: Acute Assessment and plan: mild improvement of the EVE. will repeat chem tomm. avoid nephrotoxic drugs. - Time Spent With Patient 25 - 35 minutes - Subjective Interval history: seen at the bedside, looks better today, has not moved his bowels. had 1 episode of fever 101 yesterday, no recurrence after that. he has b/l lower limb weakness and expressive dysphasia, he follows with his neurologist at [facility] and has been diagnosed with primary lateral sclerosis . he is able to understand however cannot talk properly and slowly moves his extremities. at home, as per the he is quite independent. he says he has some swallowing difficulty which is chronic. denies any chest pain or sob. - Constitutional Vitals: Temp Pulse Resp BP Pulse Ox 98.0 F 84 19 171/103 95 12/11/16 16:38 12/11/16 16:38 12/11/16 16:38 12/11/16 16:38 12/11/16 16:38 General appearance: Present: A&O X 2, pleasant, no acute distress Exam: O/E Acutely distressed patient, from pain, marked expressive dysphasia HEENT: not pale, anicteric, afebrile, acyanotic., trachea is central, no JVD, no cervical or jugular lymphadenopathy. Chest: CTAB, Heart: RRR, HS1/2, no murmur Abdomen: soft, non tender, not distended. 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 Marked expressive dysphasia Skin: No active skin lesion Extremities: No pedal edema, normal pedal pulses, no calf tenderness. Internal Medicine: Result - Labs CBC & Chem 7: 12/11/16 06:04 12/11/16 06:04 Labs: Short CBC 12/11/16 Range/Units 06:04 WBC 13.0 H (4.3-11.1) K/mcL Hgb 14.4 (12.9-16.9) g/dL Hct 43.8 (37.5-50.1) % Plt Count 181 (140-400) K/mcL Neutrophils # 9.6 H (1.6-8.9) K/mcL BMP 12/11/16 06:04 Sodium 132 L Potassium 4.7 H Chloride 96 L Carbon Dioxide 22 BUN 35 H Creatinine 1.52 H Glucose 121 H Calcium 9.6 Urine 12/11/16 Range/Units 09:50 Urine Color Dark Yellow (Yellow) Urine Clarity Cloudy A (Clear) Urine pH 6.0 (5.0-8.0) pH Units Ur Specific [place] 1.020 (1.010-1.025) Urine Protein >=300 H (Neg-Trace) mg/dL Urine Glucose (UA) Normal (Normal) mg/dL - ABG Interpretation ABG results: PT/INR, D-dimer PT 11.1 Seconds (9.4-12.1) 12/08/16 12:28 Consult Discharge Plan - Plan [facility]errals: [facility] [Primary Care Provider] - 12/23/16 3:30 pm (Please follow [facility] with your [facility]....)
[2016-12-12] MEDS: *HR* Morphine Sulfate SR (12 HR) 15 MG TABLET.ER PO SCH (06:01)
[2016-12-12] MEDS: *HR* Enoxaparin 40 MG/0.4 ML SYRINGE SQ SCH (06:02)
[2016-12-12 06:24] LABS: Basophils % 0.4 %; Eosinophils # 0.2 K/mcL (0.0-0.6); Hematocrit 39.6 % (37.5-50.1); Hemoglobin 13.4 g/dL (12.9-16.9); Immature Granulocytes % 0.5 % (0-4); Lymphocytes # 0.9 K/mcL (0.6-4.6); Lymphocytes % 12.3 %; Mean Corpuscular HGB Conc 33.8 g/dL (31.6-35.5); Mean Corpuscular Hemoglobin 28.9 pg (28.0-33.3); Mean Corpuscular Volume 85.5 fL (83.0-100.0); Mean Platelet Volume 10.6 fL (9.4-12.4); Monocytes # 0.6 K/mcL (0.0-1.3); Monocytes % 8.5 %; Neutrophils # 5.8 K/mcL (1.6-8.9); Platelet Count 205 K/mcL (140-400); Red Blood Count 4.63 M/mcL (4.19-5.50); Segmented Neutrophils % 76.3 %
[2016-12-12 06:39] LABS: BUN/Creatinine Ratio 21 (6-26); Blood Urea Nitrogen 26 mg/dL (8-26); Calcium 9.5 mg/dL (8.6-10.8); Carbon Dioxide 26 mEq/L (19-29); Chloride 97 mEq/L (98-109); Glucose 121 mg/dL (70-99); Osmolality,Calculated 286 (280-300); Potassium 4.3 mEq/L (3.5-4.5); Sodium 135 mEq/L (136-145); eGFR For African Americans > 60 (> 60); eGFR For Non-African Americans 59 (> 60)
[2016-12-12 07:13] VITALS: BP 150/69
[2016-12-12] MEDS: Insulin LISPRO 300 UNITS/3 ML VIAL SQ SCH (07:58)
[2016-12-12] MEDS ORDERED: amLODIPine 5 MG TABLET PO SCH (09:00)
[2016-12-12] MEDS: Gabapentin 300 MG CAPSULE PO SCH (09:09)
[2016-12-12] MEDS: Baclofen 10 MG TABLET PO SCH (09:10)
[2016-12-12] MEDS: Carbidopa/Levodopa 25/100 TABLET PO SCH (09:10)
[2016-12-12] MEDS: Sennosides/Docusate Sodium TABLET PO SCH (09:10)
[2016-12-12] MEDS: Aspirin 81 MG TAB.CHEW PO SCH (09:11)
[2016-12-12] MEDS: Loratadine 10 MG TABLET PO SCH (09:11)
[2016-12-12] MEDS: Eucerin Cream 57 GM TUBE TP SCH (09:13)
[2016-12-12] MEDS: Insulin DETEMIR 100 UNIT/ML X5UNITS SQ SCH (09:13)
[2016-12-12] MEDS: Budesonide/Formoterol 160/4.5 MDI IH SCH (10:20)
--- NOTE | 2016-12-12 10:21 | Discharge Summary ---
Date of Encounter: 12/12/16 Time of Encounter: 10:19 - Discharge Diagnosis (1) Primary lateral sclerosis Priority: Primary Status: Acute (2) Fever Priority: Primary Status: Acute Qualifiers: Fever type: unspecified Qualified Code(s): R50.9 - Fever, unspecified (3) Chest pain Priority: Primary Status: Acute Qualifiers: Chest pain type: unspecified Qualified Code(s): R07.9 - Chest pain, unspecified (4) EVE (acute kidney injury) Priority: Primary Status: Acute - Discharge Medications Home Medications: Albuterol Sulfate [Albuterol Inhaler] 2 puff IH QID PRN 12/08/16 [History] Allopurinol [Zyloprim 300 MG] 300 mg PO DAILY 12/08/16 [History] Aspirin 81 mg PO DAILY 12/08/16 [History] Baclofen 20 mg PO QID 12/08/16 [History] Budesonide/Formoterol 160/4.5 [Symbicort 160/4.5] 2 puff IH BIDR 12/08/16 [ History] Carbamide Peroxide [Ear Wax Drops] 4 drop BOTH EARS BID 12/08/16 [History] Carbidopa/Levodopa 25/100 [Sinemet 25/100] 2.5 each PO TID 12/08/16 [History] Escitalopram [Lexapro] 20 mg PO QAM 12/08/16 [History] Eucerin Creme 1 appl TP DAILY 12/08/16 [History] Gabapentin [Neurontin] 600 mg PO TID 12/08/16 [History] Insulin ASPART [Novolog Flexpen] 0 unit SQ TIDAC 12/08/16 [History] Insulin Glargine [Lantus] 23 unit SQ BID 12/08/16 [History] Lactulose 20 gm PO DAILY 12/08/16 [History] Lamotrigine [Lamictal] 100 mg PO HS 12/08/16 [History] Loratadine [Claritin] 10 mg PO DAILY 12/08/16 [History] Morphine Sulfate 15 mg PO TID PRN 12/08/16 [History] Naproxen [Naprosyn] 500 mg PO BID 12/08/16 [History] Omeprazole [PriLOSEC] 20 mg PO DAILY PRN 12/08/16 [History] Petrolatum,White [Aloe [place]] 1 appl TP BID 12/08/16 [History] Sennosides/Docusate Sodium [Senna Plus] 1 each PO BID 12/08/16 [History] Simvastatin [Zocor] 20 mg PO HS 12/08/16 [History] Allergies/Adverse Reactions: Allergies lisinopril Allergy (Verified 03/15/16 18:45) See Comments trazodone Allergy (Verified 03/15/16 18:45) See Comments tramadol Adverse Reaction (Verified 12/08/16 15:03) unknown per CT list Date of admission: 12/08/16 16:29 [facility] care physician: [facility] Consults: 12/10/16 09:57 Consult to Occupational Therapy [CONS] Routine Comment: Evaluate, develop and implement POC Consult to Physical Therapy [CONS] Routine Comment: Evaluate, develop and implement POC 12/10/16 14:35 Consult to [employer] [CONS] Routine Reason for SW Consult: Pt is from home with girlfriend, PT/OT have recommended inpatient rehab for patient, pt was at [facility] last year and says he would be ok with going back there. Discharging clinician: Jeannie Villatoro Anticipated date of discharge: 12/12/16 - Patient Status Disposition: Transfer Inpatient Rehab Fac Condition: Fair Functional capacity at discharge: wheelchair bound Overall status at discharge: patient is back to baseline - Discharge Instructions Follow Up With: [facility] [Primary Care Provider] - 12/23/16 3:30 pm (Please follow up with your CT primary care....) - Diet and Activity Activity: as per physical therapy Diet: advance to your usual diet Interval History: Mr. Vasquez is a 61 year old male Mr. Vasquez, with medical history significant for GERD, DM-2 on insulin, CVA , Primary lateral sclerosis with expressive dysphasia was referred from the [facility] where he had present after awakening to severe chest pain at 4;00am in the morning.He has bilateral lower leg weakness with expressive aphasia for which He follows with neurologist at [facility], he was diagnosed with PLS. he is on baclofen and carbidopa. However he is quite independent at home and he does most of his things by himself. he was admitted for chest pain.He underwent stress testing which shows negative for ischemia or infarction. No further need for any cardiac intervention at this time. he had one episode of fever of 101, however he had no source of infectiion , he had CT chest and abdomen and UA that showed no source of infection. he had no recurrence of fever nad is at baseline he was offered for neurology appointment here at [place] which miller girlfriend refused. Bedside PT OT was consulted, recommended ECF placement, patient is being discharged to the rehabilitation and follow-up with neurology there. Patient is being discharged in stable condition. Hospital course: Mr. Vasquez is a 61 year old male Time spent discussing smoking cessation with patient: more than 10 minutes - Time Spent with Patient Total time spent providing and/or coordinating discharge services: Greater than 30 minutes - Constitutional Vitals: Temp Pulse Resp BP Pulse Ox 98.2 F 70 16 150/69 96 12/12/16 07:12 12/12/16 07:12 12/12/16 07:12 12/12/16 07:12 12/12/16 07:12 General appearance: Present: A&O X 2, pleasant, no acute distress Exam: O/E Acutely distressed patient, from pain, marked expressive dysphasia HEENT: not pale, anicteric, afebrile, acyanotic., trachea is central, no JVD, no cervical or jugular lymphadenopathy. Chest: CTAB, Heart: RRR, HS1/2, no murmur Abdomen: soft, no tenderness, not distended. 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 Marked expressive dysphasia Skin: No active skin lesion Extremities: No pedal edema, normal pedal pulses, no calf tenderness.
--- NOTE | 2016-12-12 10:22 | Physician Discharge Referral ---
ExtendedCare Referral Info Transfer To: ECF Provider in Charge: silas camacho Institutional Level of Care: Skilled - Diagnosis (1) Primary lateral sclerosis Status: Acute (2) Fever Status: Acute (3) Chest pain Status: Acute (4) EVE (acute kidney injury) Status: Acute - Transfer Medications Home Medications: Albuterol Sulfate [Albuterol Inhaler] 2 puff IH QID PRN 12/08/16 [History] Allopurinol [Zyloprim 300 MG] 300 mg PO DAILY 12/08/16 [History] Aspirin 81 mg PO DAILY 12/08/16 [History] Baclofen 20 mg PO QID 12/08/16 [History] Budesonide/Formoterol 160/4.5 [Symbicort 160/4.5] 2 puff IH BIDR 12/08/16 [ History] Carbamide Peroxide [Ear Wax Drops] 4 drop BOTH EARS BID 12/08/16 [History] Carbidopa/Levodopa 25/100 [Sinemet 25/100] 2.5 each PO TID 12/08/16 [History] Escitalopram [Lexapro] 20 mg PO QAM 12/08/16 [History] Eucerin Creme 1 appl TP DAILY 12/08/16 [History] Gabapentin [Neurontin] 600 mg PO TID 12/08/16 [History] Insulin ASPART [Novolog Flexpen] 0 unit SQ TIDAC 12/08/16 [History] Insulin Glargine [Lantus] 23 unit SQ BID 12/08/16 [History] Lactulose 20 gm PO DAILY 12/08/16 [History] Lamotrigine [Lamictal] 100 mg PO HS 12/08/16 [History] Loratadine [Claritin] 10 mg PO DAILY 12/08/16 [History] Morphine Sulfate 15 mg PO TID PRN 12/08/16 [History] Naproxen [Naprosyn] 500 mg PO BID 12/08/16 [History] Omeprazole [PriLOSEC] 20 mg PO DAILY PRN 12/08/16 [History] Petrolatum,White [Aloe [place]] 1 appl TP BID 12/08/16 [History] Sennosides/Docusate Sodium [Senna Plus] 1 each PO BID 12/08/16 [History] Simvastatin [Zocor] 20 mg PO HS 12/08/16 [History] Allergies/Adverse Reactions: Allergies lisinopril Allergy (Verified 03/15/16 18:45) See Comments trazodone Allergy (Verified 03/15/16 18:45) See Comments tramadol Adverse Reaction (Verified 12/08/16 15:03) unknown per [facility] list - Respiratory Orders Smoking Cessation: Smoking cessation has been advised. For more information, call the [employer] Tobacco Quit Line at 3-576-SJJD-NOW. - Advance Directives Code Status: DNR-Arrest/Don't Intubate - Mobility Orders Chair - Rehabiliation Orders Rehab Potential: Fair Rehab Orders: Evaluation for Physical Therapy, Evaluation for Occupational Therapy - Diet Orders Regular CERTIFICATION: I certify that the transfer of the above named patient to an Extended Care Facility is necessary for the continuing treatment of the diagnosis listed. The above information is true and accurate reflection of patient's current condition. Confidential - Redisclosure prohibited without a patient's written consent.
== END 2016-12-12 11:05 | DRG 57 ==
LOC: EMEROO 11:19 → 2ANU 11:19 → SUATTDRO 16:29
PROVIDERS: ADMIT Internal Medicine; ATTEND Internal Medicine Endocrinology, Diabetes & Metabolism

== ENCOUNTER 2019-12-22 04:51 | Observation (INO) ==
[2019-12-22] MEDS ORDERED: Naloxone 0.4 MG/ML INJ IVP PRN ×2 (06:05→08:10)
[2019-12-22 06:36] LABS: Basophils # 0.1 K/mcL (0.0-0.2); Basophils % 0.5 %; Eosinophils # 0.1 K/mcL (0.0-0.6); Eosinophils % 0.4 %; Hematocrit 43.4 % (37.5-50.1); Hemoglobin 14.4 g/dL (12.9-16.9); Immature Granulocytes % 0.4 % (0-4); Mean Corpuscular HGB Conc 33.2 g/dL (31.6-35.5); Mean Corpuscular Volume 87.5 fL (83.0-100.0); Mean Platelet Volume 9.9 fL (9.4-12.4); Monocytes # 0.3 K/mcL (0.0-1.3); Monocytes % 2.1 %; Neutrophils # 11.5 K/mcL (1.6-8.9); Platelet Count 242 K/mcL (140-400); Red Blood Count 4.96 M/mcL (4.19-5.50); Red Cell Distribution Width 13.3 % (11.5-14.5); Segmented Neutrophils % 88.6 %; White Blood Count 12.9 K/mcL (4.3-11.1)
[2019-12-22 06:43] LABS: Prothrombin Time 11.8 Seconds (9.4-12.1)
[2019-12-22] MEDS ORDERED: methylPREDNISolone 125 MG/2 ML VIAL IVP ONE (07:54)
[2019-12-22] MEDS ORDERED: Isovue-370 500 ML BOTTLE IVP ONE (07:59)
[2019-12-22] MEDS ORDERED: Ringers Solution, Lactated 1,000 ML IVC SCH (08:15)
[2019-12-22] MEDS: *HR* Labetalol 20 MG/4 ML SYRINGE IVP PRN ×2 (08:19→13:03)
[2019-12-22 09:29] LABS: BUN/Creatinine Ratio 17 (6-26); Blood Urea Nitrogen 17 mg/dL (8-23); Calcium 9.9 mg/dL (8.6-10.3); Carbon Dioxide 24 mEq/L (23-29); Chloride 94 mEq/L (98-107); Glucose 220 mg/dL (70-105); Osmolality,Calculated 294 (280-300); Potassium 4.8 mEq/L (3.5-5.1); Sodium 138 mEq/L (136-145); eGFR For African Americans > 60 (> 60); eGFR For Non-African Americans > 60 (> 60)
[2019-12-22 09:33] LABS: Magnesium 1.8 mg/dL (1.6-2.6); Phosphorous 3.2 mg/dL (2.7-4.5)
[2019-12-22] MEDS ORDERED: *HR* LORazepam 2 MG/ML VIAL IVP ONE (09:41)
[2019-12-22] MEDS ORDERED: *HR* LORazepam 2 MG/ML VIAL ONE (09:42)
[2019-12-22] MEDS ORDERED: D5% in Water 1,000 ML IVC PRN (10:54)
[2019-12-22] MEDS ORDERED: Dextrose Gel 15 GM/37.5 ML TUBE PO PRN ×2 (10:54)
[2019-12-22] MEDS ORDERED: *HR* Dextrose 50 % in Water (Syg) 50 ML SYRINGE IVP PRN (10:54)
[2019-12-22] MEDS ORDERED: Insulin LISPRO 300 UNITS/3 ML VIAL SQ SCH ×2 (12:00)
[2019-12-22] MEDS ORDERED: Ampicillin/Sulbactam 3,000 MG in 0.9 % Sodium Chloride Mini Bag 100 ML IVPB SCH (12:00)
[2019-12-22] MEDS ORDERED: lamoTRIgine 100 MG TABLET PO SCH (13:00)
[2019-12-22] MEDS: Baclofen 10 MG TABLET PO SCH ×2 (13:02)
[2019-12-22] MEDS: Gabapentin 400 MG CAPSULE PO SCH ×2 (13:03→13:52)
[2019-12-22] MEDS: Carbidopa/Levodopa 25/100 TABLET PO SCH ×2 (13:03→13:52)
[2019-12-22 13:08] VITALS: BP 160/85
== END 2019-12-22 15:40 ==
LOC: ICNU
PROVIDERS: ADMIT Internal Medicine; ATTEND Internal Medicine

== ENCOUNTER 2021-04-29 18:49 | Inpatient (IN) ==
[~2021-04-29 18:49] MED LIST: *HR* Etomidate 20 MG/10 ML AMPUL IVP ONE; *HR* Rocuronium Bromide 50 MG/5 ML VIAL IVP ONE
[2021-04-29] MEDS ORDERED: Naloxone 0.4 MG/ML INJ ONE ×2 (18:59→19:01)
[2021-04-29] MEDS ORDERED: 0.9 % Sodium Chloride 1,000 ML ONE (18:59)
[2021-04-29] MEDS ORDERED: Albumin 25% 25gram/100mL 25 GM/100 ML IV.SOLN ONE (18:59)
[2021-04-29] MEDS ORDERED: *HR* Norepinephrine 4 MG/4 ML VIAL IVC ONE (19:11)
[2021-04-29] MEDS ORDERED: 0.9 % Sodium Chloride 250 ML ONE (19:11)
[2021-04-29 19:33] LABS: Basophils % 0.4 %; Eosinophils # 0.5 K/mcL (0.0-0.6); Eosinophils % 6.8 %; Hematocrit 32.9 % (37.5-50.1); Hemoglobin 10.5 g/dL (12.9-16.9); Immature Granulocytes % 0.4 % (0-4); Lymphocytes # 1.3 K/mcL (0.6-4.6); Lymphocytes % 17.4 %; Mean Corpuscular HGB Conc 31.9 g/dL (31.6-35.5); Mean Corpuscular Hemoglobin 29.2 pg (28.0-33.3); Mean Corpuscular Volume 91.6 fL (83.0-100.0); Mean Platelet Volume 10.3 fL (9.4-12.4); Monocytes # 0.6 K/mcL (0.0-1.3); Platelet Count 155 K/mcL (140-400); Red Blood Count 3.59 M/mcL (4.19-5.50); Red Cell Distribution Width 14.1 % (11.5-14.5); White Blood Count 7.5 K/mcL (4.3-11.1)
[2021-04-29] MEDS ORDERED: Albumin 25% 25gram/100mL 25 GM/100 ML IV.SOLN IVPB ONE (19:39)
[2021-04-29] MEDS ORDERED: 0.9 % Sodium Chloride 1,000 ML IVC ONE (19:39)
[2021-04-29] MEDS ORDERED: Naloxone 0.4 MG/ML INJ IVP ONE ×2 (19:39)
[2021-04-29] MEDS ORDERED: Norepinephrine 4 MG/254 ML IV.SOLN IVC SCH (19:45)
[2021-04-29 20:05] LABS: INR 1.1; Prothrombin Time 12.7 Seconds (9.4-12.1)
[2021-04-29 20:08] LABS: Activated Partial Thrombo Time 35.1 Seconds (26.0-36.0)
[2021-04-29 20:09] LABS: Amorphous Sediment,Urine Few per hpf (None-Few); Bacteria,Urine Few per hpf (None-Few); Bilirubin,Urine Negative (Negative); Blood,Urine Moderate (Negative); Clarity,Urine Turbid (Clear); Color,Urine Yellow (Yellow); Glucose,Urine (UA) Normal (Normal); Ketones,Urine Negative (Negative); Leukocyte Esterase,Urine Large (Negative); Nitrite,Urine Negative (Negative); Protein,Urine 100 mg/dL (Neg-Trace); RBC,Urine 30-50 per hpf (0-3); Specific Gravity,Urine 1.015 (1.010-1.025); Squamous Epithelial Cell,Urine Few per hpf (None-Few); Urobilinogen,Urine Normal (Normal); WBC,Urine 50-100 per hpf (0-3)
[2021-04-29 20:10] LABS: Alanine Aminotransferase 28 Units/L (7-52); Albumin 3.4 g/dL (3.5-5.7); Albumin/Globulin Ratio 1.2 (1.1-2.2); Alkaline Phosphatase 226 Units/L (34-104); Aspartate Amino Transferase 68 Units/L (13-39); BUN/Creatinine Ratio 16 (6-26); Bilirubin,Direct 0.3 mg/dL (0.0-0.2); Bilirubin,Indirect 0.3 mg/dL (0.0-1.0); Bilirubin,Total 0.6 mg/dL (0.3-1.0); Blood Urea Nitrogen 49 mg/dL (8-23); Calcium 8.4 mg/dL (8.6-10.3); Carbon Dioxide 26 mEq/L (23-29); Chloride 100 mEq/L (98-107); Creatine Kinase 346 Units/L (30-223); Ethanol < 10 mg/dL (Less than 10); Globulin 2.9 g/dL (2.4-3.5); Glucose 186 mg/dL (70-105); Osmolality,Calculated 306 (280-300); Potassium 4.3 mEq/L (3.5-5.1); Sodium 139 mEq/L (136-145); Thyroid Stimulating Hormone 0.722 mcIU/mL (0.340-5.600); Total Protein 6.3 g/dL (6.4-8.9); Troponin I 0.03 ng/mL (< 0.04); eGFR For African Americans 24 (> 60); eGFR For Non-African Americans 20 (> 60)
[2021-04-29 20:21] LABS: ABG Base Excess 1 mEq/L (-2 to 3); ABG HCO3 26 mEq/L (21-27); ABG Oxygen Saturation 100 % (95-98); ABG PCO2 40 mmHg (35-45); ABG PH 7.42 pH Units (7.32-7.45); ABG PO2 375 mmHg (85-104); ABG TCO2 27 mEq/L (20-26); Blood Gas VT 500 cc
[2021-04-29] MEDS ORDERED: Piperacillin/Tazobactam 3.375 GM in Water for inj. (sterile) 20 ML IVP ONE (20:32)
[2021-04-29 20:39] LABS: Amphetamine Screen,Urine Negative ng/mL (Cutoff=1000); Barbiturate Screen,Urine Negative ng/mL (Cutoff=200); Benzodiazepines Screen,Urine Negative ng/mL (Cutoff=200); Cannabinoid Screen,Urine Positive ng/mL (Cutoff = 50); Cocaine Screen,Urine Negative ng/mL (Cutoff= 300); Opiate Screen,Urine Negative ng/mL (Cutoff=300); Phencyclidine Screen,Urine Negative ng/mL (Cutoff=25)
[2021-04-29] MEDS ORDERED: Vancomycin 1,500 MG/265 ML IV.SOLN IVPB ONE (21:00)
[2021-04-29] MEDS ORDERED: Naloxone 0.4 MG/ML INJ IVP PRN (22:36)
[2021-04-29] MEDS ORDERED: Artificial Tears SOLN 15 ML BOTTLE BOTH EYES PRN (22:39)
[2021-04-29] MEDS ORDERED: Dextrose Gel 15 GM/37.5 ML TUBE PO PRN ×2 (22:45)
[2021-04-29] MEDS ORDERED: D5% in Water 1,000 ML IVC PRN (22:45)
[2021-04-29] MEDS ORDERED: Ringers Solution, Lactated 1,000 ML IVC ONE (22:45)
[2021-04-29] MEDS ORDERED: Azithromycin 500 MG in 0.9 % Sodium Chloride 250 ML IVPB SCH (23:00)
[2021-04-29] MEDS: Insulin LISPRO 300 UNITS/3 ML VIAL SUBQ SCH (23:21)
[2021-04-29 23:31] LABS: ABG Base Excess -1 mEq/L (-2 to 3); ABG HCO3 24 mEq/L (21-27); ABG Oxygen Saturation 90 % (95-98); ABG PCO2 38 mmHg (35-45); ABG PH 7.41 pH Units (7.32-7.45); ABG PO2 57 mmHg (85-104); ABG TCO2 25 mEq/L (20-26); Blood Gas VT 500 cc
[2021-04-30] MEDS ORDERED: Cefepime HCl 2,000 MG in Water for inj. (sterile) 20 ML IVP SCH
[2021-04-30] MEDS: FentaNYL (PF) 1,000 MCG/100 ML IV.SOLN IVC SCH ×4 (00:12→23:30)
[2021-04-30] MEDS ORDERED: 0.9 % Sodium Chloride 500 ML IVC ONE (00:17)
[2021-04-30] MEDS: Artificial Tears SOLN 15 ML BOTTLE BOTH EYES SCH ×9 (00:25→23:58)
[2021-04-30] MEDS: Chlorhexidine Rinse 15 ML MOUTHWASH MM SCH ×3 (00:25→20:01)
[2021-04-30] MEDS: 0.9 % Sodium Chloride 1,000 ML IVC SCH (01:05)
[2021-04-30 04:14] LABS: ABG Base Excess 1 mEq/L (-2 to 3); ABG HCO3 26 mEq/L (21-27); ABG Oxygen Saturation 100 % (95-98); ABG PCO2 40 mmHg (35-45); ABG PH 7.42 pH Units (7.32-7.45); ABG PO2 165 mmHg (85-104); ABG TCO2 27 mEq/L (20-26); Blood Gas VT 500 cc
[2021-04-30] MEDS: *HR* Heparin 5,000 UNIT/ML VIAL SQ SCH ×2 (05:19→14:12)
[2021-04-30] MEDS: Piperacillin/Tazobactam 3.375 GM in 0.9 % Sodium Chloride Mini Bag 100 ML IVPB SCH ×2 (05:19→17:51)
[2021-04-30] MEDS: *HR* Dextrose 50 % in Water (Vial) 50 ML VIAL IVP PRN ×2 (05:30→08:37)
[2021-04-30] MEDS ORDERED: Famotidine 20 MG/2 ML VIAL IVP SCH (06:00)
[2021-04-30 06:09] LABS: Basophils % 0.6 %; Eosinophils # 0.4 K/mcL (0.0-0.6); Eosinophils % 8.2 %; Hematocrit 32.6 % (37.5-50.1); Hemoglobin 10.9 g/dL (12.9-16.9); Immature Granulocytes % 0.4 % (0-4); Lymphocytes # 1.5 K/mcL (0.6-4.6); Lymphocytes % 28.7 %; Mean Corpuscular HGB Conc 33.4 g/dL (31.6-35.5); Mean Corpuscular Hemoglobin 29.9 pg (28.0-33.3); Mean Corpuscular Volume 89.6 fL (83.0-100.0); Mean Platelet Volume 10.4 fL (9.4-12.4); Monocytes # 0.3 K/mcL (0.0-1.3); Monocytes % 6.3 %; Platelet Count 148 K/mcL (140-400); Red Blood Count 3.64 M/mcL (4.19-5.50); Segmented Neutrophils % 55.8 %; White Blood Count 5.3 K/mcL (4.3-11.1)
[2021-04-30 06:32] LABS: Albumin 3.5 g/dL (3.5-5.7); Albumin/Globulin Ratio 1.5 (1.1-2.2); Bilirubin,Direct 0.3 mg/dL (0.0-0.2); Bilirubin,Indirect 0.4 mg/dL (0.0-1.0); Bilirubin,Total 0.7 mg/dL (0.3-1.0); Calcium 8.1 mg/dL (8.6-10.3); Globulin 2.4 g/dL (2.4-3.5); Potassium 4.1 mEq/L (3.5-5.1); Total Protein 5.9 g/dL (6.4-8.9)
[2021-04-30] MEDS: Dexmedetomidine HCl 400 MCG/100 ML MLS IVC SCH ×2 (08:23→17:09)
[2021-04-30] MEDS: Insulin LISPRO 300 UNITS/3 ML VIAL SUBQ SCH ×4 (08:37→19:17)
[2021-04-30] MEDS ORDERED: Perflutren Lipid Microsphere 1.3 ML in 0.9 % Sodium Chloride 8.7 ML IVP PRN (09:26)
[2021-04-30] MEDS: Norepinephrine 4 MG/254 ML IV.SOLN IVC SCH (10:27)
[2021-04-30] MEDS: D5% in Lactated Ringers 1,000 ML IVC SCH ×2 (10:43→18:49)
[2021-04-30] MEDS ORDERED: Ringers Solution, Lactated 500 ML IVC ONE (12:29)
[2021-04-30 15:25] LABS: Adenovirus Not Detected (Not Detect); Bordetella Pertussis Not Detected (Not Detect); Chlamydophila pneumoniae Not Detected (Not Detect); Coronavirus 229E Not Detected (Not Detect); Coronavirus HKU1 Not Detected (Not Detect); Coronavirus NL63 Not Detected (Not Detect); Coronavirus OC43 Not Detected (Not Detect); Human Metapneumovirus Not Detected (Not Detect); Human Rhinovirus/Enterovirus Not Detected (Not Detect); Influenza A Subtype 2009 H1 Not Detected (Not Detect); Influenza B Not Detected (Not Detect); Mycoplasma pneumoniae Not Detected (Not Detect); Parainfluenza Virus 1 Not Detected (Not Detect); Parainfluenza Virus 2 Not Detected (Not Detect); Parainfluenza Virus 3 Not Detected (Not Detect); Parainfluenza Virus 4 Not Detected (Not Detect); Respiratory Syncytial Virus Not Detected (Not Detect); SARS-CoV-2 Not Detected (Not Detect)
[2021-05-01] MEDS: Dexmedetomidine HCl 400 MCG/100 ML MLS IVC SCH ×3 (02:40→20:50)
[2021-05-01] MEDS: D5% in Lactated Ringers 1,000 ML IVC SCH ×2 (02:41→10:23)
[2021-05-01 04:00] LABS: Basophils % 0.4 %; Eosinophils # 0.5 K/mcL (0.0-0.6); Eosinophils % 7.7 %; Hematocrit 33.4 % (37.5-50.1); Hemoglobin 11.3 g/dL (12.9-16.9); Immature Granulocytes % 0.3 % (0-4); Lymphocytes % 27.9 %; Mean Corpuscular HGB Conc 33.8 g/dL (31.6-35.5); Mean Corpuscular Hemoglobin 29.7 pg (28.0-33.3); Mean Corpuscular Volume 87.7 fL (83.0-100.0); Monocytes # 0.5 K/mcL (0.0-1.3); Monocytes % 6.4 %; Platelet Count 150 K/mcL (140-400); Red Blood Count 3.81 M/mcL (4.19-5.50); Red Cell Distribution Width 14.2 % (11.5-14.5); Segmented Neutrophils % 57.3 %
[2021-05-01 04:20] LABS: Albumin 3.3 g/dL (3.5-5.7); Albumin/Globulin Ratio 1.1 (1.1-2.2); Bilirubin,Direct 0.2 mg/dL (0.0-0.2); Bilirubin,Indirect 0.4 mg/dL (0.0-1.0); Bilirubin,Total 0.6 mg/dL (0.3-1.0); Calcium 8.2 mg/dL (8.6-10.3); Globulin 2.9 g/dL (2.4-3.5); Potassium 4.3 mEq/L (3.5-5.1); Total Protein 6.2 g/dL (6.4-8.9)
[2021-05-01 04:38] LABS: ABG Base Excess 1 mEq/L (-2 to 3); ABG HCO3 24 mEq/L (21-27); ABG Oxygen Saturation 96 % (95-98); ABG PCO2 34 mmHg (35-45); ABG PH 7.46 pH Units (7.32-7.45); ABG PO2 74 mmHg (85-104); ABG TCO2 25 mEq/L (20-26); Blood Gas Modality ASSIST CONTROL; Blood Gas VT 500 cc
[2021-05-01] MEDS: Artificial Tears SOLN 15 ML BOTTLE BOTH EYES SCH ×6 (04:45→23:26)
[2021-05-01] MEDS: Piperacillin/Tazobactam 3.375 GM in 0.9 % Sodium Chloride Mini Bag 100 ML IVPB SCH ×2 (05:12→17:37)
[2021-05-01] MEDS: *HR* Heparin 5,000 UNIT/ML VIAL SQ SCH ×4 (05:12→20:52)
[2021-05-01] MEDS: Insulin LISPRO 300 UNITS/3 ML VIAL SUBQ SCH ×4 (07:50→19:32)
[2021-05-01] MEDS: Chlorhexidine Rinse 15 ML MOUTHWASH MM SCH ×2 (07:54→19:47)
[2021-05-01] MEDS: Famotidine 20 MG/2 ML VIAL IVP SCH (07:54)
[2021-05-01] MEDS ORDERED: Furosemide 40 MG/4 ML VIAL IVP ONE (13:00)
[2021-05-01] MEDS ORDERED: Furosemide 40 MG/4 ML VIAL ONE (13:01)
[2021-05-01 13:15] LABS: ABG Base Excess -7 mEq/L (-2 to 3); ABG HCO3 25 mEq/L (21-27); ABG Oxygen Saturation 86 % (95-98); ABG PCO2 77 mmHg (35-45); ABG PH 7.12 pH Units (7.32-7.45); ABG PO2 71 mmHg (85-104); ABG TCO2 27 mEq/L (20-26); Blood Gas VT 450 cc
[2021-05-01] MEDS ORDERED: Furosemide 80 MG in 0.9 % Sodium Chloride 50 ML IVPB ONE ×2 (13:19→14:05)
[2021-05-01] MEDS ORDERED: Albumin 25% 25gram/100mL 25 GM/100 ML IV.SOLN IVPB ONE (14:06)
[2021-05-01 15:22] LABS: Protein/Creatinine Ratio,Urine 2.06 mg/mg (0.00-0.20)
[2021-05-01] MEDS: FentaNYL (PF) 1,000 MCG/100 ML IV.SOLN IVC SCH ×2 (16:08→23:31)
[2021-05-01] MEDS: Hydrocortisone Sodium Succ 100 MG/2 ML VIAL IVP SCH ×2 (16:32→23:28)
[2021-05-01] MEDS: Norepinephrine 4 MG/254 ML IV.SOLN IVC SCH (19:17)
[2021-05-01] MEDS ORDERED: *HR* Midazolam HCl 5 MG/5 ML VIAL IVP ONE ×3 (20:22→20:48)
[2021-05-01 20:37] LABS: ABG Base Excess -4 mEq/L (-2 to 3); ABG HCO3 25 mEq/L (21-27); ABG Oxygen Saturation 85 % (95-98); ABG PCO2 60 mmHg (35-45); ABG PH 7.23 pH Units (7.32-7.45); ABG PO2 60 mmHg (85-104); ABG TCO2 27 mEq/L (20-26); Blood Gas Modality ASSIST CONTROL; Blood Gas VT 450 cc
[2021-05-01 21:22] LABS: Hepatitis B Surface Antigen Nonreactive (Nonreactive)
[2021-05-01 21:50] LABS: Hepatitis C Virus Antibody Nonreactive (Nonreactive)
[2021-05-01 21:51] LABS: Hepatitis B Core IgM Nonreactive (Nonreactive)
[2021-05-01 21:52] LABS: Hepatitis A Antibody IgM Nonreactive (Nonreactive)
[2021-05-02] MEDS: Norepinephrine 4 MG/254 ML IV.SOLN IVC SCH ×2 (03:01→05:14)
[2021-05-02] MEDS: Artificial Tears SOLN 15 ML BOTTLE BOTH EYES SCH ×6 (03:02→23:38)
[2021-05-02] MEDS ORDERED: *HR* Midazolam HCl 5 MG/5 ML VIAL IVP ONE (03:31)
[2021-05-02] MEDS: Dexmedetomidine HCl 400 MCG/100 ML MLS IVC SCH ×4 (03:40→20:43)
[2021-05-02 04:23] LABS: Albumin 3.8 g/dL (3.5-5.7); Albumin/Globulin Ratio 1.2 (1.1-2.2); Bilirubin,Direct 0.2 mg/dL (0.0-0.2); Bilirubin,Indirect 0.4 mg/dL (0.0-1.0); Bilirubin,Total 0.6 mg/dL (0.3-1.0); Calcium 8.3 mg/dL (8.6-10.3); Globulin 3.3 g/dL (2.4-3.5); Magnesium 2.4 mg/dL (1.6-2.6); Potassium 6.4 mEq/L (3.5-5.1); Total Protein 7.1 g/dL (6.4-8.9)
[2021-05-02 04:33] LABS: ABG Base Excess -3 mEq/L (-2 to 3); ABG HCO3 22 mEq/L (21-27); ABG Oxygen Saturation 99 % (95-98); ABG PCO2 40 mmHg (35-45); ABG PH 7.35 pH Units (7.32-7.45); ABG PO2 155 mmHg (85-104); ABG TCO2 23 mEq/L (20-26); Blood Gas VT 500 cc
[2021-05-02 04:57] LABS: Basophils % 0.1 %; Hematocrit 42.3 % (37.5-50.1); Hemoglobin 13.3 g/dL (12.9-16.9); Immature Granulocytes % 0.6 % (0-4); Lymphocytes % 5.8 %; Mean Corpuscular HGB Conc 31.4 g/dL (31.6-35.5); Mean Corpuscular Hemoglobin 28.9 pg (28.0-33.3); Mean Platelet Volume 10.7 fL (9.4-12.4); Monocytes % 2.5 %; Neutrophils # 16.2 K/mcL (1.6-8.9); Platelet Count 223 K/mcL (140-400); Red Cell Distribution Width 14.7 % (11.5-14.5); White Blood Count 17.8 K/mcL (4.3-11.1)
[2021-05-02 04:58] LABS: Monocytes # 0.5 K/mcL (0.0-1.3)
[2021-05-02] MEDS ORDERED: Calcium Gluconate 1gm/50mL 1 GM/50 ML BAG IVPB PRN (05:17)
[2021-05-02] MEDS ORDERED: Insulin Human Regular 10 UNIT in 0.9 % Sodium Chloride 10 ML IV ONE (05:19)
[2021-05-02] MEDS ORDERED: Albuterol Neb 7.5 MG, Sodium Chloride for inhalation 12 ML IH ONE (05:20)
[2021-05-02] MEDS: FentaNYL (PF) 1,000 MCG/100 ML IV.SOLN IVC SCH ×3 (05:23→17:51)
[2021-05-02] MEDS ORDERED: *HR* Dextrose 50 % in Water (Vial) 50 ML VIAL IVP ONE (05:30)
[2021-05-02] MEDS: Piperacillin/Tazobactam 3.375 GM in 0.9 % Sodium Chloride Mini Bag 100 ML IVPB SCH ×2 (05:36→18:24)
[2021-05-02] MEDS: *HR* Heparin 5,000 UNIT/ML VIAL SQ SCH ×3 (05:36→22:11)
[2021-05-02] MEDS ORDERED: Albuterol 2.5 MG/3 ML NEBULIZER ONE (05:40)
[2021-05-02] MEDS ORDERED: Vancomycin 1 EACH in 0.9 % Sodium Chloride 250 ML IVPB PRN (06:00)
[2021-05-02 06:15] LABS: Bacteria,Urine Few per hpf (None-Few); Bilirubin,Urine Negative (Negative); Blood,Urine Moderate (Negative); Budding Yeast,Urine Few per hpf (None Seen); Clarity,Urine Turbid (Clear); Color,Urine Light-Yellow (Yellow); Glucose,Urine (UA) Normal (Normal); Ketones,Urine Negative (Negative); Leukocyte Esterase,Urine Large (Negative); Mucus,Urine Few per lpf (None-Few); Nitrite,Urine Negative (Negative); Protein,Urine 70 mg/dL (Neg-Trace); RBC,Urine 30-50 per hpf (0-3); Specific Gravity,Urine 1.013 (1.010-1.025); Squamous Epithelial Cell,Urine Few per hpf (None-Few); Urobilinogen,Urine Normal (Normal); WBC,Urine 30-50 per hpf (0-3)
[2021-05-02] MEDS ORDERED: Vancomycin 1,500 MG/265 ML IV.SOLN IVPB ONE (07:00)
[2021-05-02] MEDS: Famotidine 20 MG/2 ML VIAL IVP SCH (07:45)
[2021-05-02] MEDS: Insulin LISPRO 300 UNITS/3 ML VIAL SUBQ SCH ×4 (07:46→23:38)
[2021-05-02] MEDS: Hydrocortisone Sodium Succ 100 MG/2 ML VIAL IVP SCH ×3 (07:46→23:37)
[2021-05-02] MEDS: Chlorhexidine Rinse 15 ML MOUTHWASH MM SCH ×2 (07:47→20:40)
[2021-05-02] MEDS ORDERED: Lidocaine/EPI 1:100k 1% 50 ML VIAL ONE (08:29)
[2021-05-02] MEDS ORDERED: Heparin 1,000 UNITS/500 mL 500 ML ONE (08:29)
[2021-05-02] MEDS ORDERED: 0.9 % Sodium Chloride 250 ML IVC PRN (08:49)
[2021-05-02] MEDS ORDERED: *HR* Heparin 5,000 UNIT/ML VIAL ONE ×2 (08:58→09:01)
[2021-05-02] MEDS ORDERED: 0.9 % Sodium Chloride 1,000 ML PRIME SCH (09:00)
[2021-05-02] MEDS: Docusate Oral Soln 100 MG/10 ML UDC GTUBE SCH ×2 (12:23→20:40)
[2021-05-02 12:46] LABS: Hepatitis B Surface Antibody 152.91 mIU/mL
[2021-05-02 12:56] LABS: Hepatitis B Surface Antigen Nonreactive (Nonreactive)
[2021-05-02] MEDS: Ipratropium/Albuterol Neb 3 ML IH SCH ×3 (16:26→23:25)
[2021-05-02] MEDS: Budesonide/Formoterol 160/4.5 1 PUFF INH IH SCH (20:10)
[2021-05-03] MEDS: FentaNYL (PF) 1,000 MCG/100 ML IV.SOLN IVC SCH ×2 (00:46→08:14)
[2021-05-03] MEDS: Dexmedetomidine HCl 400 MCG/100 ML MLS IVC SCH ×5 (02:25→23:37)
[2021-05-03] MEDS: Ipratropium/Albuterol Neb 3 ML IH SCH ×5 (03:32→19:54)
[2021-05-03 03:49] LABS: Basophils % 0.2 %; Eosinophils % 0.1 %; Hematocrit 35.9 % (37.5-50.1); Hemoglobin 11.8 g/dL (12.9-16.9); Immature Granulocytes % 0.4 % (0-4); Lymphocytes # 1.7 K/mcL (0.6-4.6); Lymphocytes % 16.6 %; Mean Corpuscular HGB Conc 32.9 g/dL (31.6-35.5); Mean Corpuscular Hemoglobin 29.3 pg (28.0-33.3); Mean Corpuscular Volume 89.1 fL (83.0-100.0); Mean Platelet Volume 10.9 fL (9.4-12.4); Monocytes # 0.7 K/mcL (0.0-1.3); Monocytes % 6.2 %; Platelet Count 155 K/mcL (140-400); Red Blood Count 4.03 M/mcL (4.19-5.50); Red Cell Distribution Width 14.5 % (11.5-14.5); Segmented Neutrophils % 76.5 %; White Blood Count 10.5 K/mcL (4.3-11.1)
[2021-05-03] MEDS: Artificial Tears SOLN 15 ML BOTTLE BOTH EYES SCH ×7 (03:49→23:38)
[2021-05-03 03:50] LABS: Albumin 3.4 g/dL (3.5-5.7); Calcium 8.4 mg/dL (8.6-10.3)
[2021-05-03 04:49] LABS: ABG Base Excess 0 mEq/L (-2 to 3); ABG HCO3 24 mEq/L (21-27); ABG Oxygen Saturation 91 % (95-98); ABG PCO2 36 mmHg (35-45); ABG PH 7.44 pH Units (7.32-7.45); ABG PO2 58 mmHg (85-104); ABG TCO2 25 mEq/L (20-26); Blood Gas VT 500 cc
[2021-05-03] MEDS: Piperacillin/Tazobactam 3.375 GM in 0.9 % Sodium Chloride Mini Bag 100 ML IVPB SCH ×2 (05:36→18:04)
[2021-05-03] MEDS: *HR* Heparin 5,000 UNIT/ML VIAL SQ SCH ×2 (05:39→15:01)
[2021-05-03] MEDS: Insulin LISPRO 300 UNITS/3 ML VIAL SUBQ SCH ×4 (05:43→23:38)
[2021-05-03] MEDS ORDERED: 0.9 % Sodium Chloride 250 ML IVC PRN (06:59)
[2021-05-03] MEDS: Budesonide/Formoterol 160/4.5 1 PUFF INH IH SCH ×2 (07:20→19:54)
[2021-05-03] MEDS: Hydrocortisone Sodium Succ 100 MG/2 ML VIAL IVP SCH ×3 (07:45→23:37)
[2021-05-03] MEDS: Famotidine 20 MG/2 ML VIAL IVP SCH (07:45)
[2021-05-03] MEDS: Docusate Oral Soln 100 MG/10 ML UDC GTUBE SCH ×2 (07:46→20:05)
[2021-05-03] MEDS: Chlorhexidine Rinse 15 ML MOUTHWASH MM SCH ×2 (07:46→20:05)
[2021-05-03] MEDS: FentaNYL (PF) 2,500 MCG/50 ML IV.SOLN IVC SCH ×2 (14:30→22:32)
[2021-05-03 17:17] LABS: VBG Ionized Calcium 1.01 mmol/L (1.15-1.35)
[2021-05-03 17:31] LABS: Magnesium 2.2 mg/dL (1.6-2.6); Potassium 4.1 mEq/L (3.5-5.1)
[2021-05-03] MEDS ORDERED: *HR* Heparin 5,000 UNIT/ML VIAL IVP ONE (17:59)
[2021-05-03] MEDS ORDERED: *HR* Heparin 5,000 UNIT/ML VIAL IVP PRN ×2 (17:59)
[2021-05-03 18:44] LABS: Hematocrit 33.5 % (37.5-50.1); Hemoglobin 11.3 g/dL (12.9-16.9); Mean Corpuscular HGB Conc 33.7 g/dL (31.6-35.5); Mean Corpuscular Volume 88.9 fL (83.0-100.0); Mean Platelet Volume 10.6 fL (9.4-12.4); Platelet Count 144 K/mcL (140-400); Red Blood Count 3.77 M/mcL (4.19-5.50); Red Cell Distribution Width 14.5 % (11.5-14.5); White Blood Count 8.8 K/mcL (4.3-11.1)
[2021-05-03] MEDS: Aspirin 81 MG TAB.CHEW PO SCH (18:51)
[2021-05-03 18:57] LABS: INR 1.1; Prothrombin Time 12.6 Seconds (9.4-12.1)
[2021-05-03] MEDS: Nitroglycerin 1 INCH/GM PACKET TP SCH (18:57)
[2021-05-03] MEDS: Heparin 25,000UNIT/250ML 1/2NS 25,000 UNIT/250 ML IV.SOLN IVC SCH (19:14)
[2021-05-03] MEDS: 0.9 % Sodium Chloride 1,000 ML IVC SCH (19:38)
[2021-05-04] MEDS: Ipratropium/Albuterol Neb 3 ML IH SCH ×7 (00:10→23:46)
[2021-05-04 04:04] LABS: Basophils % 0.2 %; Eosinophils % 0.4 %; Hematocrit 33.3 % (37.5-50.1); Hemoglobin 10.7 g/dL (12.9-16.9); Immature Granulocytes % 0.5 % (0-4); Lymphocytes # 0.9 K/mcL (0.6-4.6); Lymphocytes % 10.6 %; Mean Corpuscular HGB Conc 32.1 g/dL (31.6-35.5); Mean Corpuscular Hemoglobin 29.1 pg (28.0-33.3); Mean Corpuscular Volume 90.5 fL (83.0-100.0); Mean Platelet Volume 10.8 fL (9.4-12.4); Monocytes # 0.6 K/mcL (0.0-1.3); Monocytes % 7.4 %; Neutrophils # 6.6 K/mcL (1.6-8.9); Platelet Count 147 K/mcL (140-400); Red Blood Count 3.68 M/mcL (4.19-5.50); Red Cell Distribution Width 14.4 % (11.5-14.5); Segmented Neutrophils % 80.9 %; White Blood Count 8.1 K/mcL (4.3-11.1)
[2021-05-04 04:12] LABS: Chol/HDL Ratio 3.8 (0-4.9)
[2021-05-04 04:23] LABS: Calcium 8.1 mg/dL (8.6-10.3); Magnesium 2.2 mg/dL (1.6-2.6); Potassium 4.4 mEq/L (3.5-5.1); Troponin I 0.64 ng/mL (< 0.04)
[2021-05-04] MEDS: Artificial Tears SOLN 15 ML BOTTLE BOTH EYES SCH ×6 (04:55→23:24)
[2021-05-04] MEDS: Dexmedetomidine HCl 400 MCG/100 ML MLS IVC SCH ×5 (05:00→23:52)
[2021-05-04 05:06] LABS: ABG Base Excess 2 mEq/L (-2 to 3); ABG HCO3 28 mEq/L (21-27); ABG Oxygen Saturation 97 % (95-98); ABG PCO2 52 mmHg (35-45); ABG PH 7.34 pH Units (7.32-7.45); ABG PO2 100 mmHg (85-104); ABG TCO2 30 mEq/L (20-26); Blood Gas Modality ASSIST CONTROL; Blood Gas VT 500 cc
[2021-05-04] MEDS: Nitroglycerin 1 INCH/GM PACKET TP SCH ×2 (05:16→14:02)
[2021-05-04] MEDS: Piperacillin/Tazobactam 3.375 GM in 0.9 % Sodium Chloride Mini Bag 100 ML IVPB SCH ×2 (05:17→16:25)
[2021-05-04] MEDS: Insulin LISPRO 300 UNITS/3 ML VIAL SUBQ SCH ×4 (05:18→23:25)
[2021-05-04] MEDS: Budesonide/Formoterol 160/4.5 1 PUFF INH IH SCH ×2 (07:36→20:14)
[2021-05-04] MEDS: Famotidine 20 MG/2 ML VIAL IVP SCH (07:44)
[2021-05-04] MEDS: Docusate Oral Soln 100 MG/10 ML UDC GTUBE SCH ×2 (07:44→20:21)
[2021-05-04] MEDS: Chlorhexidine Rinse 15 ML MOUTHWASH MM SCH ×2 (07:44→20:21)
[2021-05-04] MEDS: Hydrocortisone Sodium Succ 100 MG/2 ML VIAL IVP SCH ×3 (07:44→23:24)
[2021-05-04] MEDS: Aspirin 81 MG TAB.CHEW PO SCH (07:44)
[2021-05-04] MEDS ORDERED: 0.9 % Sodium Chloride 250 ML IVC PRN (08:19)
[2021-05-04] MEDS ORDERED: *HR* Heparin 10,000 UNIT/10 ML VIAL IV PRN (08:19)
[2021-05-04] MEDS: Norepinephrine 4 MG/254 ML IV.SOLN IVC SCH (10:50)
[2021-05-04] MEDS: FentaNYL (PF) 2,500 MCG/50 ML IV.SOLN IVC SCH ×2 (11:55→23:53)
[2021-05-04 18:47] LABS: Hematocrit 33.2 % (37.5-50.1); Hemoglobin 10.7 g/dL (12.9-16.9)
[2021-05-04] MEDS: clonazePAM 1 MG TABLET PO SCH (20:21)
[2021-05-04] MEDS: Heparin 25,000UNIT/250ML 1/2NS 25,000 UNIT/250 ML IV.SOLN IVC SCH (20:22)
[2021-05-04] MEDS: Pantoprazole 40 MG VIAL IVP SCH (20:34)
[2021-05-05 00:25] LABS: Hematocrit 31.2 % (37.5-50.1)
[2021-05-05] MEDS: Artificial Tears SOLN 15 ML BOTTLE BOTH EYES SCH ×6 (03:11→23:18)
[2021-05-05] MEDS: Insulin LISPRO 300 UNITS/3 ML VIAL SUBQ SCH ×5 (03:34→23:20)
[2021-05-05] MEDS: Ipratropium/Albuterol Neb 3 ML IH SCH ×5 (03:58→20:33)
[2021-05-05] MEDS: Dexmedetomidine HCl 400 MCG/100 ML MLS IVC SCH ×5 (04:30→23:18)
[2021-05-05 04:33] LABS: Basophils % 0.1 %; Eosinophils # 0.1 K/mcL (0.0-0.6); Eosinophils % 1.3 %; Hematocrit 30.3 % (37.5-50.1); Hemoglobin 10.2 g/dL (12.9-16.9); Immature Granulocytes % 0.5 % (0-4); Lymphocytes # 0.8 K/mcL (0.6-4.6); Lymphocytes % 10.5 %; Mean Corpuscular HGB Conc 33.7 g/dL (31.6-35.5); Mean Corpuscular Hemoglobin 30.3 pg (28.0-33.3); Mean Corpuscular Volume 89.9 fL (83.0-100.0); Mean Platelet Volume 10.8 fL (9.4-12.4); Monocytes # 0.6 K/mcL (0.0-1.3); Monocytes % 7.1 %; Neutrophils # 6.4 K/mcL (1.6-8.9); Platelet Count 157 K/mcL (140-400); Red Blood Count 3.37 M/mcL (4.19-5.50); Red Cell Distribution Width 14.3 % (11.5-14.5); Segmented Neutrophils % 80.5 %; White Blood Count 7.9 K/mcL (4.3-11.1)
[2021-05-05 04:35] LABS: Calcium 7.9 mg/dL (8.6-10.3); Magnesium 2.1 mg/dL (1.6-2.6); Potassium 4.1 mEq/L (3.5-5.1)
[2021-05-05 04:42] LABS: ABG Base Excess 7 mEq/L (-2 to 3); ABG HCO3 33 mEq/L (21-27); ABG Oxygen Saturation 90 % (95-98); ABG PCO2 53 mmHg (35-45); ABG PH 7.39 pH Units (7.32-7.45); ABG PO2 61 mmHg (85-104); ABG TCO2 34 mEq/L (20-26); Blood Gas VT 500 cc
[2021-05-05] MEDS: Nitroglycerin 1 INCH/GM PACKET TP SCH ×2 (05:36→11:37)
[2021-05-05] MEDS: Piperacillin/Tazobactam 3.375 GM in 0.9 % Sodium Chloride Mini Bag 100 ML IVPB SCH (05:36)
[2021-05-05] MEDS: Pantoprazole 40 MG VIAL IVP SCH ×2 (05:36→18:26)
[2021-05-05 07:07] LABS: Hematocrit 31.7 % (37.5-50.1); Hemoglobin 10.1 g/dL (12.9-16.9)
[2021-05-05] MEDS: Chlorhexidine Rinse 15 ML MOUTHWASH MM SCH ×2 (07:44→19:42)
[2021-05-05] MEDS: Hydrocortisone Sodium Succ 100 MG/2 ML VIAL IVP SCH ×3 (07:44→23:19)
[2021-05-05] MEDS: Docusate Oral Soln 100 MG/10 ML UDC GTUBE SCH ×2 (07:45→19:42)
[2021-05-05] MEDS: clonazePAM 1 MG TABLET PO SCH ×2 (07:45→19:42)
[2021-05-05] MEDS: Aspirin 81 MG TAB.CHEW PO SCH (07:46)
[2021-05-05] MEDS: Heparin 25,000UNIT/250ML 1/2NS 25,000 UNIT/250 ML IV.SOLN IVC SCH (07:46)
[2021-05-05] MEDS: Norepinephrine 4 MG/254 ML IV.SOLN IVC SCH (07:46)
[2021-05-05] MEDS: Budesonide/Formoterol 160/4.5 1 PUFF INH IH SCH ×2 (08:00→20:34)
[2021-05-05] MEDS: FentaNYL (PF) 2,500 MCG/50 ML IV.SOLN IVC SCH (09:33)
[2021-05-05] MEDS ORDERED: Ampicillin/Sulbactam 3,000 MG in 0.9 % Sodium Chloride Mini Bag 100 ML IVPB SCH (12:00)
[2021-05-05 13:33] LABS: Hematocrit 30.4 % (37.5-50.1); Hemoglobin 9.9 g/dL (12.9-16.9)
[2021-05-05 18:23] LABS: Metanephrine, Plasma 0.47 nmol/L (0.00-0.49)
[2021-05-05] MEDS: Ampicillin/Sulbactam 3,000 MG in 0.9 % Sodium Chloride Mini Bag 100 ML IVPB SCH (23:19)
[2021-05-06] MEDS: Ipratropium/Albuterol Neb 3 ML IH SCH ×7 (00:08→23:25)
[2021-05-06] MEDS: FentaNYL (PF) 2,500 MCG/50 ML IV.SOLN IVC SCH ×2 (02:08→21:22)
[2021-05-06] MEDS: Artificial Tears SOLN 15 ML BOTTLE BOTH EYES SCH ×6 (02:58→23:51)
[2021-05-06] MEDS: Heparin 25,000UNIT/250ML 1/2NS 25,000 UNIT/250 ML IV.SOLN IVC SCH ×2 (02:58→23:52)
[2021-05-06 04:02] LABS: Basophils % 0.2 %; Eosinophils % 0.7 %; Hematocrit 29.7 % (37.5-50.1); Hemoglobin 9.9 g/dL (12.9-16.9); Immature Granulocytes % 0.7 % (0-4); Lymphocytes # 0.7 K/mcL (0.6-4.6); Lymphocytes % 10.6 %; Mean Corpuscular HGB Conc 33.3 g/dL (31.6-35.5); Mean Corpuscular Hemoglobin 29.9 pg (28.0-33.3); Mean Corpuscular Volume 89.7 fL (83.0-100.0); Mean Platelet Volume 10.3 fL (9.4-12.4); Monocytes # 0.5 K/mcL (0.0-1.3); Monocytes % 7.5 %; Neutrophils # 4.9 K/mcL (1.6-8.9); Platelet Count 152 K/mcL (140-400); Red Blood Count 3.31 M/mcL (4.19-5.50); Red Cell Distribution Width 14.3 % (11.5-14.5); Segmented Neutrophils % 80.3 %; White Blood Count 6.1 K/mcL (4.3-11.1)
[2021-05-06 04:10] LABS: ABG Base Excess 4 mEq/L (-2 to 3); ABG HCO3 31 mEq/L (21-27); ABG Oxygen Saturation 99 % (95-98); ABG PCO2 58 mmHg (35-45); ABG PH 7.34 pH Units (7.32-7.45); ABG PO2 171 mmHg (85-104); ABG TCO2 33 mEq/L (20-26); Blood Gas VT 500 cc
[2021-05-06 04:21] LABS: Calcium 7.9 mg/dL (8.6-10.3); Magnesium 2.3 mg/dL (1.6-2.6); Potassium 4.3 mEq/L (3.5-5.1)
[2021-05-06] MEDS: Pantoprazole 40 MG VIAL IVP SCH ×2 (05:51→17:16)
[2021-05-06] MEDS: Insulin LISPRO 300 UNITS/3 ML VIAL SUBQ SCH ×4 (05:51→23:51)
[2021-05-06] MEDS: Nitroglycerin 1 INCH/GM PACKET TP SCH ×2 (05:52→11:20)
[2021-05-06] MEDS: Budesonide/Formoterol 160/4.5 1 PUFF INH IH SCH ×2 (07:29→19:52)
[2021-05-06] MEDS: Aspirin 81 MG TAB.CHEW PO SCH (08:04)
[2021-05-06] MEDS: Hydrocortisone Sodium Succ 100 MG/2 ML VIAL IVP SCH ×2 (08:04→17:16)
[2021-05-06] MEDS: Docusate Oral Soln 100 MG/10 ML UDC GTUBE SCH ×2 (08:05→20:30)
[2021-05-06] MEDS: Dexmedetomidine HCl 400 MCG/100 ML MLS IVC SCH ×3 (08:05→21:15)
[2021-05-06] MEDS: clonazePAM 1 MG TABLET PO SCH ×3 (08:05→20:30)
[2021-05-06] MEDS: Chlorhexidine Rinse 15 ML MOUTHWASH MM SCH ×2 (08:05→20:30)
[2021-05-06] MEDS: Norepinephrine 4 MG/254 ML IV.SOLN IVC SCH (11:08)
[2021-05-06] MEDS: Ampicillin/Sulbactam 3,000 MG in 0.9 % Sodium Chloride Mini Bag 100 ML IVPB SCH ×2 (11:19→23:51)
[2021-05-07] MEDS: Dexmedetomidine HCl 400 MCG/100 ML MLS IVC SCH ×3 (02:26→13:29)
[2021-05-07] MEDS: Artificial Tears SOLN 15 ML BOTTLE BOTH EYES SCH ×4 (03:03→15:55)
[2021-05-07 03:09] LABS: Hematocrit 28.2 % (37.5-50.1); Hemoglobin 9.3 g/dL (12.9-16.9); Mean Corpuscular Hemoglobin 29.4 pg (28.0-33.3); Mean Corpuscular Volume 89.2 fL (83.0-100.0); Mean Platelet Volume 10.3 fL (9.4-12.4); Platelet Count 152 K/mcL (140-400); Red Blood Count 3.16 M/mcL (4.19-5.50); Red Cell Distribution Width 14.2 % (11.5-14.5); White Blood Count 7.2 K/mcL (4.3-11.1)
[2021-05-07] MEDS: Ipratropium/Albuterol Neb 3 ML IH SCH ×3 (04:00→11:19)
[2021-05-07 04:07] LABS: Calcium 7.8 mg/dL (8.6-10.3); Magnesium 2.4 mg/dL (1.6-2.6); Phosphorous 6.2 mg/dL (2.7-4.5); Potassium 3.8 mEq/L (3.5-5.1)
[2021-05-07 04:12] LABS: ABG Base Excess 2 mEq/L (-2 to 3); ABG HCO3 27 mEq/L (21-27); ABG Oxygen Saturation 95 % (95-98); ABG PCO2 39 mmHg (35-45); ABG PH 7.44 pH Units (7.32-7.45); ABG PO2 72 mmHg (85-104); ABG TCO2 28 mEq/L (20-26); Blood Gas Modality ASSIST CONTROL; Blood Gas VT 500 cc
[2021-05-07] MEDS: Nitroglycerin 1 INCH/GM PACKET TP SCH ×2 (05:38→12:25)
[2021-05-07] MEDS: Insulin LISPRO 300 UNITS/3 ML VIAL SUBQ SCH (05:38)
[2021-05-07] MEDS: Pantoprazole 40 MG VIAL IVP SCH (05:40)
[2021-05-07] MEDS: Hydrocortisone Sodium Succ 100 MG/2 ML VIAL IVP SCH (05:40)
[2021-05-07] MEDS ORDERED: 0.9 % Sodium Chloride 250 ML IVC PRN (07:23)
[2021-05-07] MEDS ORDERED: *HR* Heparin 10,000 UNIT/10 ML VIAL IV PRN ×2 (07:23)
[2021-05-07] MEDS ORDERED: 0.9 % Sodium Chloride 1,000 ML PRIME SCH (07:30)
[2021-05-07] MEDS: Budesonide/Formoterol 160/4.5 1 PUFF INH IH SCH (07:48)
[2021-05-07] MEDS: Chlorhexidine Rinse 15 ML MOUTHWASH MM SCH (07:51)
[2021-05-07] MEDS: Docusate Oral Soln 100 MG/10 ML UDC GTUBE SCH (07:51)
[2021-05-07] MEDS: Aspirin 81 MG TAB.CHEW PO SCH (07:51)
[2021-05-07] MEDS: clonazePAM 1 MG TABLET PO SCH ×2 (07:51→13:30)
[2021-05-07] MEDS ORDERED: Insulin LISPRO 300 UNITS/3 ML VIAL SUBQ SCH (09:21)
[2021-05-07] MEDS: Norepinephrine 4 MG/254 ML IV.SOLN IVC SCH (11:44)
[2021-05-07] MEDS: Ampicillin/Sulbactam 3,000 MG in 0.9 % Sodium Chloride Mini Bag 100 ML IVPB SCH (12:26)
[2021-05-07] MEDS ORDERED: *HR* LORazepam 2 MG/ML VIAL IVP PRN ×2 (14:35→18:47)
[2021-05-07] MEDS ORDERED: *HR* FentaNYL (PF) 100 MCG/2 ML VIAL IVP PRN ×2 (14:38→18:47)
[2021-05-07 15:18] VITALS: BP 125/62
[2021-05-07] MEDS: FentaNYL (PF) 2,500 MCG/50 ML IV.SOLN IVC SCH (15:33)
[2021-05-07] MEDS ORDERED: Artificial Tears SOLN 15 ML BOTTLE BOTH EYES PRN (18:47)
[2021-05-07] MEDS ORDERED: Bisacodyl 10 MG RECTAL SUPPOSITORY RC PRN (21:00)
== END 2021-05-07 19:20 | disposition expired | DRG 870 ==
LOC: EMEROOARM 18:49 → ICNU 22:21 → 2ANU 05-07 18:37
PROVIDERS: ADMIT Family Medicine; ATTEND Family Medicine